=== PATIENT | male | born 1985 | race Caucasian/White ===

== ENCOUNTER → 2016-10-11 | Outpatient (CLI) | payer BC ==
[2016-10-11 14:24] LABS: BASO % 0.8 % (0.0-1.0); EOS # 0.3 K/mm3 (0.0-0.50); EOS % 5.3 % (0.0-3.0); LYMPH # 1.6 K/mm3 (1.5-4.5); LYMPH % 29.2 % (24.0-44.0); MEAN CORPUSCULAR HEMOGLOBIN 31.1 pg (27.0-33.0); MONO # 0.4 K/mm3 (0.0-0.8); MONO % 7.7 % (0.0-5.0); NEUTROPHILS # 2.8 K/mm3 (1.8-7.7); NEUTROPHILS % 53.3 % (36.0-66.0); RED CELL DISTRIBUTION WIDTH 13.1 % (11.5-14.5); WHITE BLOOD COUNT 5.3 K/mm3 (4.0-10.0)
[2016-10-11 14:48] LABS: ALBUMIN 4.3 GM/DL (3.2-5.2); ALBUMIN/GLOBULIN RATIO 1.59 (1.00-1.93); ALKALINE PHOSPHATASE 61 U/L (45-117); ALT/SGPT 54 U/L (12-78); AST/SGOT 25 U/L (15-37); BILIRUBIN,DIRECT 0.1 MG/DL (0.0-0.2); BILIRUBIN,TOTAL 0.5 MG/DL (0.2-1.0)
== END ==
LOC: M LAB 13:46
PROVIDERS: ATTEND Internal Medicine Gastroenterology
DX: K51.90 Ulcerative colitis, unspecified, without complications (principal); R12 Heartburn

== ENCOUNTER → 2017-05-13 | Outpatient (CLI) | payer BC ==
[2017-05-13 13:51] LABS: BASO # 0.1 10^3/uL (0.0-0.2); BASO % 0.6 % (0.0-1.0); EOS # 0.3 10^3/uL (0.0-0.50); EOS % 3.8 % (0.0-3.0); IMMATURE GRANULOCYTE % 0.2 % (0-0); LYMPH # 2.2 10^3/uL (1.5-4.5); LYMPH % 26.3 % (24.0-44.0); MEAN CORPUSCULAR HEMOGLOBIN 30.9 pg (27.0-33.0); MEAN CORPUSCULAR HGB CONC 35.7 g/dl (32.0-36.5); MEAN CORPUSCULAR VOLUME 86.6 fl (80.0-96.0); MONO # 0.9 10^3/uL (0.0-0.8); MONO % 11.2 % (0.0-5.0); NEUTROPHILS # 4.8 10^3/uL (1.8-7.7); NEUTROPHILS % 57.9 % (36.0-66.0); PLATELET COUNT, AUTOMATED 329 10^3/uL (150-450); RED CELL DISTRIBUTION WIDTH 12.4 % (11.5-14.5); WHITE BLOOD COUNT 8.2 10^3/uL (4.0-10.0)
[2017-05-13 14:41] LABS: ALBUMIN 4.3 GM/DL (3.2-5.2); ALBUMIN/GLOBULIN RATIO 1.43 (1.00-1.93); ALKALINE PHOSPHATASE 56 U/L (45-117); ALT/SGPT 61 U/L (12-78); AST/SGOT 23 U/L (7-37); BILIRUBIN,DIRECT 0.1 MG/DL (0.0-0.2); BILIRUBIN,TOTAL 0.3 MG/DL (0.2-1.0); TOTAL PROTEIN 7.3 GM/DL (6.4-8.2)
== END ==
LOC: M LAB 12:59
PROVIDERS: ATTEND Internal Medicine Gastroenterology
DX: K51.90 Ulcerative colitis, unspecified, without complications (principal)

== ENCOUNTER 2018-01-17 08:51 | Day surgery (SDC) | payer BC ==
[~2018-01-17 08:51] MED LIST: LIDOCAINE 2% INJ 100 MG/5 ML SDV (FOR ANES.) As Ordered; PROPOFOL 200 MG/20 ML VIAL As Ordered
[2018-01-17] MEDS: NS 1,000 ML IV (09:00)
[2018-01-17] MEDS ORDERED: LIDOCAINE 2% INJ 100 MG/5 ML SDV (FOR ANES.) As Ordered (09:56)
[2018-01-17] MEDS ORDERED: PROPOFOL 200 MG/20 ML VIAL As Ordered (09:56)
== END 2018-01-17 10:30 | disposition home or self-care (01) ==
LOC: M OPP 08:51
DX: K22.8 Other specified diseases of esophagus (principal); K44.9 Diaphragmatic hernia without obstruction or gangrene; R12 Heartburn; I10 Essential (primary) hypertension; Z79.899 Other long term (current) drug therapy; Z87.891 Personal history of nicotine dependence
CPT/HCPCS: 43239

== ENCOUNTER 2019-02-02 23:34 | Emergency (ER) | payer BC ==
[~2019-02-02] VITALS: Ht 170.2 cm; Wt 150.0 kg
[~2019-02-02 23:34] MED LIST changes: +AZAT50TA2 PO; +HUMI40KI2 SC; +IMUR50TA10 PO; -LIDOCAINE 2% INJ 100 MG/5 ML SDV (FOR ANES.) As Ordered; +LISI20TA18 PO; +MULTCAP PO; +OMEP10CASR PO; +PRED20TA PO; -PROPOFOL 200 MG/20 ML VIAL As Ordered
[2019-02-03 01:10] LABS: HEMATOCRIT 44.3 % (42.0-52.0); HEMOGLOBIN 15.4 g/dl (13.5-17.5); MEAN CORPUSCULAR HEMOGLOBIN 31.2 pg (27.0-33.0); MEAN CORPUSCULAR HGB CONC 34.8 g/dl (32.0-36.5); MEAN CORPUSCULAR VOLUME 89.7 fl (80.0-96.0); PLATELET COUNT, AUTOMATED 266 10^3/uL (150-450); RED BLOOD COUNT 4.94 10^6/uL (4.30-6.10); WHITE BLOOD COUNT 12.8 10^3/uL (4.0-10.0)
[2019-02-03 01:15] LABS: APPEARANCE, URINE CLEAR (CLEAR); BACTERIA, URINE AUTO NEGATIVE (NEGATIVE); BILIRUBIN, URINE AUTO NEGATIVE (NEGATIVE); BLOOD, URINE BLOOD 1+ (NEGATIVE); COLOR, URINE YELLOW (YELLOW); GLUCOSE, URINE (UA) AUTO NEGATIVE (NEGATIVE); KETONE, URINE AUTO TRACE mg/dL (NEGATIVE); LEUKOCYTE ESTERASE, URINE AUTO NEGATIVE (NEGATIVE); MUCUS, URINE SMALL (NEGATIVE); NITRITE, URINE AUTO NEGATIVE (NEGATIVE); PROTEIN, URINE AUTO NEGATIVE (NEGATIVE); RBC, URINE AUTO 16 /HPF (0-3); SPECIFIC GRAVITY URINE AUTO 1.025 (1.002-1.035); SQUAMOUS EPITHELIAL CELL UR AU 0 /HPF (0-6); WBC, URINE AUTO 0 /HPF (0-3)
[2019-02-03 02:41] LABS: ALBUMIN 4.3 GM/DL (3.2-5.2); ALT/SGPT 45 U/L (12-78); BILIRUBIN,TOTAL 0.6 MG/DL (0.2-1.0); BLOOD UREA NITROGEN 15 MG/DL (7-18); CALCIUM LEVEL 9.2 MG/DL (8.5-10.1); CARBON DIOXIDE LEVEL 32 MEQ/L (21-32); CHLORIDE LEVEL 102 MEQ/L (98-107); CREATININE FOR GFR 0.86 MG/DL (0.70-1.30); GLOMERULAR FILTRATION RATE > 60.0 (>60); GLUCOSE, FASTING 91 MG/DL (70-100); POTASSIUM SERUM 3.9 MEQ/L (3.5-5.1); SODIUM LEVEL 139 MEQ/L (136-145); TOTAL PROTEIN 7.6 GM/DL (6.4-8.2)
[2019-02-03] MEDS ORDERED: NS 500 ML IV ONE (02:45)
[2019-02-03 03:22] LABS: BASO % 0.3 % (0.0-1.0); EOS # 0.2 10^3/uL (0.0-0.50); EOS % 1.4 % (0.0-3.0); LYMPH # 2.2 10^3/uL (1.5-4.5); MONO # 1.3 10^3/uL (0.0-0.8); MONO % 9.9 % (0.0-5.0); NEUTROPHILS % 71.1 % (36.0-66.0)
[2019-02-03 03:32] LABS: INR 1.04; PROTHROMBIN TIME 13.3 SECONDS (11.8-14.0)
[2019-02-03 03:39] LABS: ALBUMIN 4.4 GM/DL (3.2-5.2); BILIRUBIN,DIRECT 0.2 MG/DL (0.0-0.2); BILIRUBIN,TOTAL 0.8 MG/DL (0.2-1.0); TOTAL PROTEIN 7.8 GM/DL (6.4-8.2)
[2019-02-03] MEDS ORDERED: ISOVUE-370 76% 100ML VIAL (Q9967) As Ordered ONE (03:45)
--- NOTE | 2019-02-03 06:34 | REPVR ---
EXAM: CT Abdomen and Pelvis With Contrast EXAM DATE/TIME: 02/03/2019 3:51 AM CLINICAL HISTORY: 33 years old, male; Abdominal pain; Localized; Right lower quadrant (rlq); Additional info: Rlq pain TECHNIQUE: Imaging protocol: Axial computed tomography images of the abdomen and pelvis with intravenous contrast. Coronal and sagittal reformatted images were created and reviewed. Radiation optimization: All CT scans at this facility use at least one of these dose optimization techniques: automated exposure control; mA and/or kV adjustment per patient size (includes targeted exams where dose is matched to clinical indication); or iterative reconstruction. Contrast material: ISOVUE 370;Contrast volume: 100 ml;Contrast route: IV; COMPARISON: No relevant prior studies available. FINDINGS: Lungs: The visualized portions of the lung bases are normal. Liver: The liver is markedly decreased in attenuation when higher density around gallbladder fossa, consistent with marked fatty infiltration with areas of sparing. Gallbladder and bile ducts: The gallbladder is normal with no stones or biliary ductal dilation. Pancreas: The pancreas is normal with no ductal dilation. Spleen: The spleen is normal. Adrenals: The adrenal glands are normal. Kidneys and ureters: The kidneys are unremarkable. There are no ureteral stones or hydronephrosis. Stomach and bowel: The small bowel appears unremarkable. There is short segment thickening of the right colon above the ileocolic junction with prominent adjacent inflammatory stranding and a trace of fluid. There is a thickwalled, focal outpouching from the colon at the site, likely an inflamed diverticulum. The cecum does not appear significantly thickened. The remainder of the colon is not dilated or thickened. A few diverticula are seen in the left colon. Appendix: The appendix is enlarged, measuring 14 mm in diameter. There is mild stranding adjacent to the appendix, but it does not appear to be the epicenter of the inflammatory process. Intraperitoneal space: There is no free intraperitoneal air. See Stomach and bowel findings. Retroperitoneal space: There is stranding extending down the right retroperitoneum. Vasculature: No aortic aneurysm. Lymph nodes: There are a few prominent lymph nodes in the mesentery in the right lower quadrant. Bladder: The bladder is unremarkable. No stones identified. Reproductive: The prostate gland and seminal vesicles are normal. Bones/joints: No suspicious osseous lesions. No acute fractures or dislocations. Soft tissues: There is a small periumbilical hernia containing fat. IMPRESSION: 1. Short segment thickening and prominent adjacent stranding centered at the mid right colon, which appears to be due to right-sided colonic diverticulitis. 2. The appendix is thickened, measuring up to 14 mm in diameter and there is a small amount of adjacent stranding, but it does not appear to be in the epicenter of the inflammatory process and may be secondarily inflamed. 3. Marked fatty infiltration of the liver. Electronically signed by: Caridad Modi On 02/03/2019 06:33:36 AM
[2019-02-03] MEDS ORDERED: metroNIDAZOLE 750 MG in APPROPRIATE DILUENT 1 EA IV ONE (06:45)
[2019-02-03] MEDS ORDERED: CIPROFLOXACIN 400 MG in APPROPRIATE DILUENT 1 EA IV ONE (06:45)
[2019-02-03] MEDS ORDERED: CIPR-249 PO (06:48)
[2019-02-03] MEDS ORDERED: FLAG500T PO (06:48)
[2019-02-03 09:02] VITALS: BP 137/91
--- NOTE | 2019-02-08 06:41 | ED PDOC ---
Post-Departure Follow-Up dr baldwin faxed formal report of ct abd/p for fu Mu Grayson MD Feb 08, 2019 06:41
== END 2019-02-03 09:20 | disposition home or self-care (01) ==
LOC: M ED 23:34
DX: K57.32 Diverticulitis of large intestine without perforation or abscess without bleeding (principal); K76.0 Fatty (change of) liver, not elsewhere classified; I10 Essential (primary) hypertension; E66.9 Obesity, unspecified; Z79.899 Other long term (current) drug therapy
CPT/HCPCS: 74177; 80053; 80076; 81001; 83690; 85027; 85610; 85730; 96365; 96366; 96368; 99284; J0744; Q9967

== ENCOUNTER 2019-03-18 10:45 | Day surgery (SDC) | payer BC ==
[2019-03-17] MEDS: NS 1,000 ML IV ONE (15:15)
[~2019-03-18] VITALS: Ht 170.2 cm; Wt 145.1 kg
[~2019-03-18 10:45] MED LIST changes: +CIPR-249 PO; +FLAG500T PO; -LISI20TA18 PO; +LISI20TA19 PO
[2019-03-18] MEDS ORDERED: PROPOFOL 200 MG/20 ML VIAL As Ordered ONE ×2 (12:07→12:15)
--- NOTE | 2019-03-18 12:20 | ROOR ---
Patient Name: John Chase Procedure Date: 03/18/2019 11:50 AM Date of : 1985 Age: 33 Room: [facility] Gender: Male Note Status: Finalized Procedure: Total Colonoscopy to cecum + Bx. Indications: Abdominal pain in the right lower quadrant, Follow-up of diverticulitis Providers: Irving Main MD Referring MD: THA TOWNSEND JR, MD Requesting Provider: Medicines: Monitored Anesthesia Care Complications: No immediate complications. Procedure: Pre-Anesthesia Assessment: - The heart rate, respiratory rate, oxygen saturations, blood pressure, adequacy of pulmonary ventilation, and response to care were monitored throughout the procedure. The Colonoscope was introduced through the anus and advanced to the cecum, identified by appendiceal orifice and ileocecal valve. The colonoscopy was performed without difficulty. The patient tolerated the procedure well. The quality of the bowel preparation was excellent. Findings: The perianal and digital rectal examinations were normal. Non-bleeding internal hemorrhoids were found during retroflexion. The hemorrhoids were small and Grade I (internal hemorrhoids that do not prolapse). Multiple small and large-mouthed diverticula were found in the recto-sigmoid colon, sigmoid colon and descending colon. Background biopsies were taken for histology with a cold forceps from the ascending colon, transverse colon, descending colon and rectosigmoid colon. These biopsy specimens were sent to Pathology. The exam was otherwise without abnormality on direct and retroflexion views. Impression: - Non-bleeding internal hemorrhoids. - Diverticulosis in the recto-sigmoid colon, in the sigmoid colon and in the descending colon. - The examination was otherwise normal on direct and retroflexion views. - Background biopsies were taken from the ascending colon, transverse colon, descending colon and rectosigmoid colon. - The exam was otherwise normal to the cecum. Recommendation: - Patient has a contact number available for emergencies. The signs and symptoms of potential delayed complications were discussed with the patient. Return to normal activities tomorrow. Written discharge instructions were provided to the patient. - High fiber diet. - Discharge patient to home. - Continue present medications. - Await pathology results. - Telephone GI clinic for pathology results in 1 week. - Repeat colonoscopy in 5 years for surveillance. - Return to referring physician. - The findings and recommendations were discussed with the patient's family. Irving Main MD Irving Main MD 03/18/2019 12:20:21 PM Electronically signed by Irving Main MD Number of Addenda: 0 Note Initiated On: 03/18/2019 11:50 AM Estimated Blood Loss: Estimated blood loss: none.
[2019-03-18 12:40] VITALS: BP 134/79
== END 2019-03-18 12:52 | disposition home or self-care (01) ==
LOC: M OPP 10:45
PROVIDERS: ATTEND Internal Medicine Gastroenterology
DX: K51.80 Other ulcerative colitis without complications (principal); R10.31 Right lower quadrant pain; K57.32 Diverticulitis of large intestine without perforation or abscess without bleeding; K64.1 Second degree hemorrhoids; I10 Essential (primary) hypertension; K21.9 Gastro-esophageal reflux disease without esophagitis; R06.83 Snoring; Z79.899 Other long term (current) drug therapy; Z87.891 Personal history of nicotine dependence

== ENCOUNTER 2019-04-02 07:21 | Emergency (ER) | payer OTHER, BC ==
[~2019-04-02] VITALS: Ht 170.2 cm; Wt 153.3 kg
[2019-04-02 07:21] VITALS: BP 148/86
[2019-04-02] MEDS ORDERED: TETRACAINE 0.5% OPHTH SOLN 4ML OS ONE (08:00)
[2019-04-02] MEDS ORDERED: FLUORESCEIN OPHTH 1 MG STRIP As Ordered ONE (08:02)
[2019-04-02] MEDS ORDERED: FLUORESCEIN OPHTH 1 MG STRIP OS ONE (08:15)
[2019-04-02] MEDS ORDERED: ERYT1OIN26 OS (08:25)
[2019-04-02] MEDS ORDERED: ADACEL/BOOSTRIX VACCINE (DIPHTH/PERTUSS/ACELL/TETANUS)0.5ML SYR (90715) IM ONE (08:30)
[2019-04-02] MEDS ORDERED: ERYTHROMYCIN OPHTH OINT OS ONE (08:30)
== END 2019-04-02 08:37 | disposition home or self-care (01) ==
LOC: M ED 07:21
DX: T15.02XA Foreign body in cornea, left eye, initial encounter (principal); Z79.899 Other long term (current) drug therapy

== ENCOUNTER → 2020-01-02 | Outpatient (CLI) | payer BC ==
[~2020-01-02] MED LIST changes: +ERYT5OIN25 OS; -LISI20TA19 PO; +LISI20TA35 PO
--- NOTE | 2020-01-13 11:49 | SLEEPCENT ---
DATE OF PROCEDURE: 01/02/2020 ORDERED BY: GISEL Stevens Nocturnal polysomnography was performed for evaluation of sleep physiology in this patient with a history of excessive somnolence and nonrestorative sleep. 6 hours and 29 minutes of data were reviewed. There were 169 minutes of sleep identified. Sleep latency was prolonged at 45 minutes. Rapid eye movement (REM) latency was short at 29 minutes. Sleep architecture showed fragmentation. There were 2 REM cycles noted. Overall sleep efficiency 44.5%. The patient's electrocardiogram showed a sinus rhythm with an average heart rate of 75 beats per minute. Electroencephalogram (EEG) showed some EKG bleed through, but otherwise normal waveforms for awake and sleep. There were 140 respiratory events identified of 10 seconds in duration or greater for an apnea-hypopnea index of 49.7. The events were primarily obstructive not exclusive to sleep stage nor body posture. Arousals from respiratory events occurred 8.2 times per hour and oxygen desaturations were seen in the low 80s. There was minimal activity in the limb leads and limb movement arousal index was 2.1. IMPRESSION: Severe obstructive sleep apnea syndrome (G47.33). Apnea-hypopnea index 47.9. RECOMMENDATIONS: The patient should be encouraged to return to the sleep disorder center for pressure therapy. In the interim, alcohol and sedative avoidance should be practiced and caution exercised during the operation of motor vehicles.
== END ==
LOC: M SLEEP 20:00
PROVIDERS: ATTEND Physician Assistant
DX: R06.83 Snoring (principal)

== ENCOUNTER → 2020-02-20 | Outpatient (CLI) | payer BC ==
--- NOTE | 2020-02-27 08:33 | SLEEPCENT ---
DATE: 02/20/2020 ORDERED BY: Ministerio Cook Nocturnal polysomnography was performed for the titration of pressure therapy in this patient with severe obstructive sleep apnea syndrome, apnea-hypopnea index 47.9. For testing, a ResMed AirFit F20 full-face mask of medium size was used. There was 4 cm of water pressure applied to the circuit, and the lights were extinguished. There was 7 hours and 4 minutes of data reviewed. There was 273.5 minutes of sleep identified. Sleep latency was prolonged at 30.5 minutes. REM latency was snort at 30.5 minutes. Sleep architecture was good with five REM cycles. Overall sleep efficiency was 67.1% The electrocardiogram showed a sinus rhythm with an average heart rate of 72 beats per minute. EEG showed reasonably normal waveforms for wake and sleep stages. Persistence of respiratory events prompted an increase in CPAP pressure. On retrospective review of the study, best sleep was seen on a CPAP pressure of +14. Despite optimal pressure, saturations dipped into the upper 80s. IMPRESSION: Severe obstructive sleep apnea syndrome (G47.33). RECOMMENDATION: Nightly use of pressure therapy, 14 cm of water. MTDD
== END ==
LOC: M SLEEP 20:00
PROVIDERS: ATTEND Physician Assistant
DX: G47.33 Obstructive sleep apnea (adult) (pediatric) (principal)

== ENCOUNTER 2020-08-14 12:09 | Emergency (ER) | payer BC ==
[~2020-08-14] VITALS: Ht 170.2 cm; Wt 159.7 kg
--- OUTSIDE RECORDS SUMMARY | 2020-08-14 12:16 | CCD | Continuity of Care Document ---
Author Author John BANKS Organization Unknown Address [phone] [address] Phone [phone] Problems Active Problems Provider Date Pure hypercholesterolemia Darshan Gallegos MD Onset: 05/16 Ulcerative colitis Darshan Gallegos MD Onset: 05/16/2011 Essential hypertension Darshan Gallegos MD Onset: 05/16/20 11 Morbid obesity Darshan Gallegos MD Onset: 11/26/2017 Body mass index 40+ - severely obese Darshan Gallegos MD O nset: 11/26/2017 Abnormal glucose level Darshan Gallegos MD Onset: 05/26/20 19 Social History Type Date Description Comments Sex Unknown ETOH Use Denies alcohol use Tobacco Use Start: Unknown Patient has never smoked He used to chew tobacco but quit 2013 and totally abstains Allergies, Adverse Reactions, Alerts Description No Known Drug Allergies Medications Active Medications SIG Qnty Indications Ordering Provide r Date Amlodipine Besylate 10mg Tablets 1 by mouth every day 90tabs ARNAV Ramsey JR 021 Lisinopril 10mg Tablets Take 1 Tablet By Mouth Every Day 90tabs ARNAV Ramsey JR 021 Lisinopril-Hydrochlorothiazide 20-12.5mg Tablets take one tablet by mouth once a day 90tabs ARNAV Solis JR 07/18/[address] 1 by mouth every day 90caps Darshan Gallegos MD 03/29/2020 Humira 40mg/0.8ML PSKT q2wks Darshan Gallegos MD 10/31/2016 Imuran 50mg Tablets 1 qd Darshan Gallegos MD 05/16/2011 History Medications Amlodipine Besylate 5mg Tablets 1 by mouth every day 90tabs Darshan Gallegos MD 06/13/2020 - 08/01/2020 Medications Administered in Office Medication SIG Qnty Indications Ordering Provider Date Immunization Adminstration,1 Vaccine/Tox oid Injection Darshan Gallegos MD 2019 Immunization Adminstration,1 Vaccine/Tox oid Injection Darshan Gallegos MD 2018 Immunizations CPT Code Status Date Vaccine Reaction Lot # [id number] Given 03/29/2020 Influenza Vaccin e Quadrivalent Preser/Antibiotic Free Im Use [id number] Given 05/26/2019 Influenza Vaccin e Quadrivalent Preser/Antibiotic Free Im Use [id number] [id number] Given 05/28/2017 Influenza Vaccin e Quadrivalent Preser/Antibiotic Free Im Use [id number] [id number] Given 07/09/2016 PPD 07-11-16 0mm negative B Pancho LOZANO [id number] Q2037 Given 05/01/2016 Fluvirin Virus Vaccine [id number] Q2037 Given 04/03/2012 Fluvirin Virus Vaccine Q2037 Given 05/16/2011 Fluvirin Virus Vaccine 18410 Given 04/28/2010 Influenza Virus Vaccine 07482 Given 03/25/2009 Influenza Virus Vaccine Vital Signs Date Vital Result Comment 08/01/2020 10:09am BP Systolic 150 mmHg BP Diastolic 90 mmHg Heart Rate 83 /min Height 67.50 inches 5'7.50" Weight 357.00 lb BMI (Body Mass Index) 55.1 kg/m2 07/18/2020 8:24am BP Systolic 160 mmHg BP Diastolic 100 mmHg Heart Rate 81 /min Height 67.50 inches 5'7.50" Weight 362.00 lb BMI (Body Mass Index) 55.9 kg/m2 Results Test Acquired Date Facility Test Result H/L Range Note Basic Metabolic Panel 08/01/2020 [facility] Laundry Operator: [place] [address] [phone] Glucose 126 mg/dL High 74 - 99 1 BUN 15 mg/dL 7 - 18 Creatinine 0.9 mg/dL 0.6 - 1.3 Sodium 139 mEq/L 136 - 145 Potassium 4.1 mEq/L 3.5 - 5.1 Chloride 101 mEq/L 98 - 107 Carbon Dioxide 29 mEq/L 21 - 32 Calcium 9.3 mg/dL 8.5 - 10.1 GFR >= 60 mL/min >60 GFR >= 60 mL/min >60 2 Complete Blood Count 03/29/2020 [facility] Laundry Operator: [place] [address] [phone] WBC 7.4 x10*3/UL 4.1 - 10.9 RBC 5.05 x10*6/UL 4.20 - 6.30 Hemoglobin 15.5 g/dL 12.0 - 18.0 Hematocrit 43.4 % 37.0 - 51.0 MCV 86.1 fL 80.0 - 97.0 MCH 30.8 pg 26.0 - 32.0 MCHC 35.7 g/dL 31.0 - 38.0 RDW 12.4 % 11.6 - 13.7 PLT 280 x10*3/UL 140 - 440 MPV 7.3 FL Low 7.8 - 11.0 Lymph % 31.1 % 10.0 - 58.5 Mid % 8.8 % 1.7 - 9.3 Neut % 60.1 % 37.0 - 92.0 Lymph # 2.3 x10*3/UL 0.6 - 4.1 Mid # 0.7 x10*3/UL High 0.1 - 0.6 Neut # 4.4 x10*3/UL 2.0 - 7.8 A1c 03/29/2020 [facility] Laundry Operator: [place] [address] [phone] Hba1c 6.3 % High <5.7 3 Est Avg Glucose 134 mg/dL High 60 - 110 Comprehensive Chem Profile 03/29/2020 [facility] Laundry Operator: [place] [address] [phone] Glucose 109 mg/dL High 74 - 99 4 BUN 13 mg/dL 7 - 18 Creatinine 0.9 mg/dL 0.6 - 1.3 Sodium 139 mEq/L 136 - 145 Potassium 3.9 mEq/L 3.5 - 5.1 Chloride 101 mEq/L 98 - 107 Carbon Dioxide 27 mEq/L 21 - 32 Calcium 9.5 mg/dL 8.5 - 10.1 Alk. Phosphatase 61 mg/dL 46 - 116 Total Bilirubin 0.6 mg/dL 0.2 - 1.0 Ast (Sgot) 32 U/L 15 - 37 Alt (SGPT) 77 U/L 12 - 78 Albumin 4.5 g/dL 3.4 - 5.0 Total Protein 7.8 g/dL 6.4 - 8.2 A/G Ratio 1.36 CALC 1.00 - 1.90 GFR >= 60 mL/min >60 GFR >= 60 mL/min >60 5 Lipid Profile 03/29/2020 [facility] Laundry Operator: [place] [address] [phone] Cholesterol 171 mg/dL 131 - 200 Triglycerides 296 mg/dL High 30 - 150 HDL Cholesterol 34 mg/dL Low 35 - 60 LDL (Calculated) 78 CALC 50 - 159 1 100-125 mg/dL PRE-DIABET ES/FASTING >126 mg/dL DIABETES/FASTING 2 CHRONIC KIDNEY DISEASE STAGI NG PER NKF STAGE I & II GFR >= 60 NORMAL TO MILDLY DECREASED STAGE III GFR 30-59 MODERATELY DECREASED STAGE IV GFR 15-29 SEVERELY DECREASED STAGE V GFR <15 VERY LITTLE GFR LEFT ESRD GFR <15 ON HEAD INSULATION BOARD SAW OPERATOR 3 Lab Result Notes: Pre-Diabetes 5.7 - 6.4 % Diabetes = or > 6.5% 4 100-125 mg/dL PRE-DIABET ES/FASTING >126 mg/dL DIABETES/FASTING 5 CHRONIC KIDNEY DISEASE STAGI NG PER NKF STAGE I & II GFR >= 60 NORMAL TO MILDLY DECREASED STAGE III GFR 30-59 MODERATELY DECREASED STAGE IV GFR 15-29 SEVERELY DECREASED STAGE V GFR <15 VERY LITTLE GFR LEFT ESRD GFR <15 ON HEAD INSULATION BOARD SAW OPERATOR Procedures Date Code Description Status 03/18/2019 [id number] Colonoscopy Completed 01/17/2018 [id number] Colonoscopy Completed 12/28/2013 [id number] Colonoscopy Completed 06/03/2009 [id number] Colonoscopy Completed Medical Devices Description No Information Available Encounters Type Date Location Provider Dx Diagnosis Office Visit 07/18/2020 8:20a [facility] I10 Essential (primary) hyperten jennifer E66.01 Morbid (severe) obesity due to excess calories Z68.43 Body mass index [BMI] 50.0-5 9.9, adult Office Visit 03/29/2020 9:20a [facility] Darshan Gallegos MD G47.33 Obstructive sleep apnea (adult) (pediatr ic) I10 Essential (primary) hyperten jennifer K51.90 Ulcerative colitis, unspecif ied, without complications E78.00 Pure hypercholesterolemia, u nspecified R73.09 Other abnormal glucose E66.01 Morbid (severe) obesity due to excess calories Z68.43 Body mass index [BMI] 50.0-5 9.9, adult Z23 Encounter for immunization Assessments Date Code Description Provider 08/01/2020 I10 Essential (primary) hypertension ARNAV Ramsey JR 08/01/2020 E66.01 Morbid (severe) obesity due to e xcess calories ARNAV Ramsey JR 08/01/2020 Z68.43 Body mass index [BMI] 50.0-59.9, adult ARNAV Ramsey JR 07/18/2020 I10 Essential (primary) hypertension ARNAV Ramsey JR 07/18/2020 E66.01 Morbid (severe) obesity due to e xcess calories ARNAV Ramsey JR 07/18/2020 Z68.43 Body mass index [BMI] 50.0-59.9, adult ARNAV Ramsey JR 03/29/2020 G47.33 Obstructive sleep apnea (adult) (pediatric) Darshan Gallegos MD 03/29/2020 I10 Essential (primary) hypertension Darshan Gallegos MD 03/29/2020 K51.90 Ulcerative colitis, unspecified, without complications Darshan Gallegos MD 03/29/2020 E78.00 Pure hypercholesterolemia, unspe cified Darshan Gallegos MD 03/29/2020 R73.09 Other abnormal glucose Darshan Gallegos MD 03/29/2020 E66.01 Morbid (severe) obesity due to e xcess calories Darshan Gallegos MD 03/29/2020 Z68.43 Body mass index [BMI] 50.0-59.9, adult Darshan Gallegos MD 03/29/2020 Z23 Encounter for immunization Colli jermaine Gallegos MD Plan of Treatment Future Appointment(s):* 08/22/2020 10:40 am - ARNAV Ramsey JR at [facility] * 09/28/2020 10:20 am - [facility] 08/01/2020 - ARNAV Ramsey JR* I10 Essential (primary) hypertension* Comments:* He is not currently at [facility] goals, diet and exercise were discussed including Mediterranean diet and 30 minutes of aerobic exercise daily, continue current medication regimen at this time.Continue the previously added 10mg lisinopril to his already 20-12.5 combo dose, will continue to monitor daily BPs and RTC 2-3 weeks. Continue exercise, will attempt to watch diet better. Had unfavorable weight gain. Increased amlodipine to 10mg * E66.01 Morbid (severe) obesity due to excess calories* Comments:* As above, diet and exercise * Z68.43 Body mass index [BMI] 50.0-59.9, adult* Comments:* As above * All * New Medication:* Amlodipine Besylate 10 mg - 1 by mouth every day Functional Status Description No Information Available Mental Status Description No Information Available Referrals Description No Information Available
--- OUTSIDE RECORDS SUMMARY | 2020-08-14 12:16 | CCD | Continuity of Care Document ---
Author Author John BANKS Organization Unknown Address [address] [address] Phone [phone] Problems Active Problems Provider Date Pure hypercholesterolemia [...] Code Status Date Vaccine Reaction Lot # [id number] Given 03/29/2020 Influenza Vaccin e Quadrivalent Preser/Antibiotic Free Im Use [id number] 24900 Given 05/26/2019 Influenza Vaccin e Quadrivalent Preser/Antibiotic Free Im Use [id number] 43555 Given 05/28/2017 Influenza Vaccin e Quadrivalent Preser/Antibiotic Free Im Use [id number] 93282 Given 07/09/2016 PPD 07-11-16 0mm negative B Pancho LOZANO [id number] Q2037 Given 05/01/2016 Fluvirin Virus Vaccine 16 [id number] Q2037 Given 04/03/2012 Fluvirin Virus Vaccine Q2037 Given 05/16/2011 Fluvirin Virus Vaccine 13538 Given 04/28/2010 Influenza Virus Vaccine 60238 Given 03/25/2009 Influenza Virus Vaccine Vital Signs [...] H/L Range Note Basic Metabolic Panel 08/01/2020 [facility] Forestry Professor: [place] [address] [phone] Glucose 126 mg/dL High 74 - 99 [...] mL/min >60 2 Complete Blood Count 03/29/2020 [facility] Forestry Professor: [place] [address] [phone] WBC 7.4 x10*3/UL 4.1 - 10.9 RBC [...] 4.4 x10*3/UL 2.0 - 7.8 A1c 03/29/2020 [facility] Forestry Professor: [place] [address] [phone] Hba1c 6.3 % High <5.7 3 Est Avg Glucose 134 mg/dL High 60 - 110 Comprehensive Chem Profile 03/29/2020 [facility] Forestry Professor: [place] [address] [phone] Glucose 109 mg/dL High 74 - 99 [...] 60 mL/min >60 5 Lipid Profile 03/29/2020 [facility] Forestry Professor: [place] [address] [phone] Cholesterol 171 mg/dL 131 - 200 Triglycerides [...] LITTLE GFR LEFT ESRD GFR <15 ON RESIDENT CARE DIRECTOR 3 Lab Result Notes: Pre-Diabetes 5.7 - [...] LITTLE GFR LEFT ESRD GFR <15 ON RESIDENT CARE DIRECTOR Procedures Date Code Description Status 03/18/2019 [id number] Colonoscopy Completed 01/17/2018 [id number] Colonoscopy Completed 12/28/2013 [id number] Colonoscopy Completed 06/03/2009 [id number] Colonoscopy Completed Medical Devices Description No Information Available Encounters Type Date Location Provider Dx Diagnosis Office Visit 08/01/2020 10:00a [facility], [facility] I10 Essential (primary) hyperten jennifer E66.01 Morbid (severe) obesity due to excess calories Z68.43 Body mass index [BMI] 50.0-5 9.9, adult Office Visit 07/18/2020 8:20a [facility] JR I10 Essential (primary) hyperten jennifer E66.01 Morbid (severe) obesity due to excess calories Z68.43 Body mass index [BMI] 50.0-5 9.9, adult Office Visit 03/29/2020 9:20a [facility] MD G47.33 Obstructive sleep apnea (adult) [...] Treatment Future Appointment(s):* 08/22/2020 10:40 am - Timi Banks JR PA at [facility] * 09/28/2020 10:20 am - Darshan Gallegos MD at [facility] 08/01/2020 - ARNAV Ramsey JR* I10 [...]
--- OUTSIDE RECORDS SUMMARY | 2020-08-14 12:17 | CCD | Continuity of Care Document ---
Author Author John TIDWELL PA Organization Unknown Address [address] [address] Phone [phone] Problems Active Problems Provider Date Pure hypercholesterolemia [...] SIG Qnty Indications Ordering Provide r Date Lisinopril 10mg Tablets Take 1 Tablet By Mouth Every Day 90tabs ARNAV Ramsey JR 021 Lisinopril-Hydrochlorothiazide 20-12.5mg Tablets take one tablet by mouth once a day 90tabs ARNAV Solis JR 07/18/2020 Amlodipine Besylate 5mg Tablets 1 by mouth every day 90tabs Darshan Gallegos MD 06/13/[address] 1 by mouth every day 90caps Darshan Gallegos MD 03/29/2020 Humira 40mg/0.8ML PSKT q2wks Darshan Gallegos MD 10/31/2016 Imuran 50mg Tablets 1 qd Darshan Gallegos MD 05/16/2011 Medications Administered in Office Medication SIG Qnty Indications Ordering Provider Date Immunization Adminstration,1 Vaccine/Tox oid Injection Darshan Gallegos MD 2019 Immunization Adminstration,1 Vaccine/Tox oid Injection Darshan Gallegos MD 2018 Immunizations CPT Code Status Date Vaccine Reaction Lot # [id number] Given 03/29/2020 Influenza Vaccin e Quadrivalent Preser/Antibiotic Free Im Use [id number] 90590 Given 05/26/2019 Influenza Vaccin e Quadrivalent Preser/Antibiotic Free Im Use [id number] 73366 Given 05/28/2017 Influenza Vaccin e Quadrivalent Preser/Antibiotic Free Im Use 464333 93144 Given 07/09/2016 PPD 07-11-16 0mm negative B Pancho LOZANO [id number] Q2037 Given 05/01/2016 Fluvirin Virus Vaccine 16 54794 Q2037 Given 04/03/2012 Fluvirin Virus Vaccine Q2037 Given 05/16/2011 Fluvirin Virus Vaccine 75954 Given 04/28/2010 Influenza Virus Vaccine 66829 Given 03/25/2009 Influenza Virus Vaccine Vital Signs Date Vital Result Comment 07/18/2020 8:24am BP Systolic 160 mmHg BP Diastolic 100 mmHg Heart Rate 81 /min Height 67.50 inches 5'7.50" Weight 362.00 lb BMI (Body Mass Index) 55.9 kg/m2 03/29/2020 9:14am BP Systolic 136 mmHg BP Diastolic 72 mmHg Heart Rate 74 /min Height 67.50 inches 5'7.50" Weight 357.00 lb BMI (Body Mass Index) 55.1 kg/m2 Results Test Acquired Date Facility Test Result H/L Range Note Complete Blood Count 03/29/2020 [facility] Shaker Washer: [place] [address] [phone] WBC 7.4 x10*3/UL 4.1 - 10.9 RBC [...] 4.4 x10*3/UL 2.0 - 7.8 A1c 03/29/2020 [facility] , Shaker Washer: [place] [address] [phone] Hba1c 6.3 % High <5.7 1 Est Avg Glucose 134 mg/dL High 60 - 110 Comprehensive Chem Profile 03/29/2020 [facility] Shaker Washer: [place] [address] [phone] Glucose 109 mg/dL High 74 - 99 2 BUN 13 mg/dL 7 - 18 Creatinine [...] mL/min >60 GFR >= 60 mL/min >60 3 Lipid Profile 03/29/2020 [facility] , Shaker Washer: [place] [address] [phone] Cholesterol 171 mg/dL 131 - 200 Triglycerides 296 mg/dL High 30 - 150 HDL Cholesterol 34 mg/dL Low 35 - 60 LDL (Calculated) 78 CALC 50 - 159 1 Lab Result Notes: Pre-Diabetes 5.7 - 6.4 % Diabetes = or > 6.5% 2 100-125 mg/dL PRE-DIABET ES/FASTING >126 mg/dL DIABETES/FASTING 3 CHRONIC KIDNEY DISEASE STAGI NG PER NKF STAGE I & II GFR >= 60 NORMAL TO MILDLY DECREASED STAGE III GFR 30-59 MODERATELY DECREASED STAGE IV GFR 15-29 SEVERELY DECREASED STAGE V GFR <15 VERY LITTLE GFR LEFT ESRD GFR <15 ON FRAME BENDER Procedures Date Code Description Status 03/18/2019 [id number] Colonoscopy Completed 01/17/2018 [id number] Colonoscopy Completed 12/28/2013 [id number] Colonoscopy Completed 06/03/2009 [id number] Colonoscopy Completed Medical Devices Description No Information Available Encounters Type Date Location Provider Dx Diagnosis Office Visit 03/29/2020 9:20a [facility] Darshan Gallegos MD G47.33 Obstructive sleep apnea (adult) (pediatr ic) I10 Essential (primary) hyperten jennifer K51.90 Ulcerative colitis, unspecif ied, without complications E78.00 Pure hypercholesterolemia, u nspecified R73.09 Other abnormal glucose E66.01 Morbid (severe) obesity due to excess calories Z68.43 Body mass index [BMI] 50.0-5 9.9, adult Z23 Encounter for immunization Assessments Date Code Description Provider 07/18/2020 I10 Essential (primary) hypertension ARNAV Ramsey [...] Gallegos MD Plan of Treatment Future Appointment(s):* 09/28/2020 10:20 am - [facility] 07/18/2020 - ARNAV Ramsey JR* I10 Essential (primary) hypertension * E66.01 Morbid (severe) obesity due to excess calories * Z68.43 Body mass index [BMI] 50.0-59.9, adult * All * New Medication:* Lisinopril 10 mg - Take 1 Tablet By Mouth Every Day * Lisinopril-Hydrochlorothiazide 20-12.5 mg - take one tablet by mouth once a day Functional Status Description No Information Available Mental Status Description No Information Available Referrals Description No Information Available
--- OUTSIDE RECORDS SUMMARY | 2020-08-14 12:17 | CCD | Continuity of Care Document ---
Author Author John ONTIVEROS PA Organization Unknown Address [address] [place] [address] Phone [phone] Care Team Providers Care Culinary Artist Name Role Phone Timi Banks AUTM [phone] Darshan Gallegos MD @ [facility] Int AUTM [phone] AUTM Unavailable Problems Active Problems Provider Date Obstructive sleep apnea syndrome ARNAV Stevens Onset: 02/01/2020 Social History Type Date Description Comments Sex Unknown Tobacco Use Start: Unknown Patient has never smoked Smoking Status Reviewed: 06/10/20 Patient has never smoked Allergies, Adverse Reactions, Alerts Description No Known Drug Allergies Medications Active Medications SIG Qnty Indications Ordering Provide r Date CPAP Device 14cm marcial Sloan D.O. 02/26/2020 Lisinopril 20mg Tablets 1 tab by mouth every day Unknown Humira twice a month Unknown Imuran 50mg Tablets 1 tab by mouth every day Unknown Prilosec 40mg Capsules DR 1 tab by mouth every day 180caps Unknown Immunizations CPT Code Status Date Vaccine Lot # [id number] Given 04/27/2020 Afluria, Quadrivalent, 0.5ml , [facility]# [id number] Given 05/06/2019 Afluria, Quadrivalent, 0.5ml , [facility]# [id number] Vital Signs Date Vital Result Comment 06/10/2020 8:21am BP Systolic 138 mmHg BP Diastolic 98 mmHg Heart Rate 83 /min O2 % BldC Oximetry 98 % Height 67 inches 5'7" Weight 364.00 lb BMI (Body Mass Index) 57.0 kg/m2 [place] Body Weight 148 lb Weight 165.110 kg BSA (Body Surface Area) 2.61 m2 04/19/2020 8:37am BP Systolic 142 mmHg BP Diastolic 96 mmHg Heart Rate 76 /min O2 % BldC Oximetry 98 % Height 67 inches 5'7" Weight 358.00 lb BMI (Body Mass Index) 56.1 kg/m2 [place] Body Weight 148 lb Weight 162.389 kg BSA (Body Surface Area) 2.59 m2 Results Description No Information Available Procedures Description No Information Available Medical Devices Description No Information Available Encounters Type Date Location Provider Dx Diagnosis Office Visit 04/19/2020 9:00a [facility] ARNAV Stevens G47.33 Obstructive sleep apnea (adult) (pediatr ic) Office Visit 02/01/2020 9:30a [facility] ARNAV Stevens G47.33 Obstructive sleep apnea (adult) (pediatr ic) Office Visit 12/21/2019 10:30a [facility] ARNAV Stevens R06.83 Snoring R40.0 Somnolence Assessments Date Code Description Provider 06/10/2020 G47.33 Obstructive sleep apnea (adult) (pediatric) ARNAV Stevens 04/19/2020 G47.33 Obstructive sleep apnea (adult) (pediatric) ARNAV Stevens 02/01/2020 G47.33 Obstructive sleep apnea (adult) (pediatric) ARNAV Stevens 12/21/2019 R06.83 Snoring ARNAV Stevens 12/21/2019 R40.0 Somnolence ARNAV Stevens Plan of Treatment Future Appointment(s):* 06/05/2021 11:30 am - ARNAV Stevens at [facility] 06/10/2020 - ARNAV Stevens* G47.33 Obstructive sleep apnea (adult) (pediatric) * * Follow up:* Follow up in 1 year with compliance download Functional Status Functional Condition Comment Date Status Independent with all ADL's Activ e Mental Status Mental Condition Comment Date Status Cognitive ability not impaired A ctive Referrals Refer to Reason for Referral Status Appt Date [facility] smc auth sleep [id number] Created Sleep Lab [address] [address] [phone]
--- OUTSIDE RECORDS SUMMARY | 2020-08-14 12:17 | CCD | Continuity of Care Document ---
Author Author John TIDWELL Organization Unknown Address [address] [address] Phone [phone] Problems Active Problems Provider Date Pure hypercholesterolemia [...] Code Status Date Vaccine Reaction Lot # 24519 Given 03/29/2020 Influenza Vaccin e Quadrivalent Preser/Antibiotic Free Im Use [id number] 69410 Given 05/26/2019 Influenza Vaccin e Quadrivalent Preser/Antibiotic Free Im Use 085634 55351 Given 05/28/2017 Influenza Vaccin e Quadrivalent Preser/Antibiotic Free Im Use 844560 77594 Given 07/09/2016 PPD 17 0mm negative B Pancho LOZANO [id number] Q2037 Given 05/01/2016 Fluvirin Virus Vaccine 16 36820 Q2037 Given 04/03/2012 Fluvirin Virus Vaccine Q2037 Given 05/16/2011 Fluvirin Virus Vaccine 57813 Given 04/28/2010 Influenza Virus Vaccine 00984 Given 03/25/2009 Influenza Virus Vaccine Vital Signs [...] H/L Range Note Complete Blood Count 03/29/2020 [facility] Medicine Technologist: [place] [address] [phone] WBC 7.4 x10*3/UL 4.1 - 10.9 RBC [...] 4.4 x10*3/UL 2.0 - 7.8 A1c 03/29/2020 [facility] , Medicine Technologist: [place] [address] [phone] Hba1c 6.3 % High <5.7 1 Est Avg Glucose 134 mg/dL High 60 - 110 Comprehensive Chem Profile 03/29/2020 [facility], Medicine Technologist: [place] Darshan [place] [address] [phone] Glucose 109 mg/dL High 74 - 99 [...] 60 mL/min >60 3 Lipid Profile 03/29/2020 [facility] , Medicine Technologist: [place] [address] [phone] Cholesterol 171 mg/dL 131 - 200 Triglycerides [...] LITTLE GFR LEFT ESRD GFR <15 ON MIXING PICKER TENDER Procedures Date Code Description Status 03/18/2019 [id number] Colonoscopy Completed 01/17/2018 [id number] Colonoscopy Completed 12/28/2013 [id number] Colonoscopy Completed 06/03/2009 [id number] Colonoscopy Completed Medical Devices Description No Information Available Encounters Type Date Location Provider Dx Diagnosis Office Visit 07/18/2020 8:20a [facility] [place] [facility] I10 Essential (primary) hyperten jennifer E66.01 Morbid (severe) obesity due to excess calories Z68.43 Body mass index [BMI] 50.0-5 9.9, adult Office Visit 03/29/2020 9:20a [facility] Gallegos MD G47.33 Obstructive sleep apnea (adult) [...] 10:20 am - Darshan Gallegos MD at [facility] 08/01/2020 - ARNAV Ramsey JR* [...] diet better. Had unfavorable weight gain. Increased amlodopine to 10mg * E66.01 Morbid (severe) obesity [...]
--- OUTSIDE RECORDS SUMMARY | 2020-08-14 12:17 | CCD ---
Author Author [facility] Organization [facility] Address Unknown Phone Unavailable Care Team Providers Care Cad Draftsman Name Role Phone Lane Main MD Unavailable Unavailable Lane Main MD Unavailable Unavailable Lane Main MD Unavailable Unavailable Lane Main MD Unavailable Unavailable Lane Main MD Unavailable Unavailable Lane Main MD Unavailable Unavailable Lane Main MD Unavailable Unavailable Lane Main MD Unavailable Unavailable Lane Main MD Unavailable Unavailable Lane Main MD Unavailable Unavailable Lane Main MD Unavailable Unavailable Lane Main MD Unavailable Unavailable Lane Main MD Unavailable Unavailable Lane Main MD Unavailable Unavailable Lane Main MD Unavailable Unavailable Lane Main MD Unavailable Unavailable Lane Main MD Unavailable Unavailable Lane Main MD Unavailable Unavailable Lane Main MD Unavailable Unavailable Lane Main MD Unavailable Unavailable Lane Main MD Unavailable Unavailable Lane Main MD Unavailable Unavailable Lane Main MD Unavailable Unavailable Lane Main MD Unavailable Unavailable Lane Main MD Unavailable Unavailable Lane Main MD Unavailable Unavailable Lane Main MD Unavailable Unavailable Lane Main MD Unavailable Unavailable Lane Main MD Unavailable Unavailable Lane Main MD Unavailable Unavailable Lane Main MD Unavailable Unavailable Lane Main MD Unavailable Unavailable Lane Main MD Unavailable Unavailable Lane Main MD Unavailable Unavailable Lane Main MD Unavailable Unavailable Lane Main MD Unavailable Unavailable Lane Main MD Unavailable Unavailable Lane Main MD Unavailable Unavailable Lane Main MD Unavailable Unavailable Lane Main MD Unavailable Unavailable Lane Main MD Unavailable Unavailable Lane Main MD Unavailable Unavailable Lane Main MD Unavailable Unavailable Lane Main MD Unavailable Unavailable Lane Main MD Unavailable Unavailable Lane Main MD Unavailable Unavailable Lane Main MD Unavailable Unavailable Lane Main MD Unavailable Unavailable Lane Main MD Unavailable Unavailable Lane Main MD Unavailable Unavailable CarsonRoyal gabriel MD Unavailable Unavailable CarsonRoyal gabriel MD Unavailable Unavailable ElRoyal gabriel MD Unavailable Unavailable CarsonRoyal gabriel MD Unavailable Unavailable CarsonRoyal gabriel MD Unavailable Unavailable CarsonRoyal gabriel MD Unavailable Unavailable CarsonRoyal gabriel MD Unavailable Unavailable CarsonRoyal gabriel MD Unavailable Unavailable ElRoyal gabriel MD Unavailable Unavailable CarsonRoyal gabriel MD Unavailable Unavailable CarsonRoyal gabriel MD Unavailable Unavailable ElRoyal gabriel MD Unavailable Unavailable Royal Gallegos MD Unavailable Unavailable CarsonRoyal gabriel MD Unavailable Unavailable CarsonRoyal gabriel MD Unavailable Unavailable ElRoyal gabriel MD Unavailable Unavailable ElRoyal gabriel MD Unavailable Unavailable Royal Gallegos MD Unavailable Unavailable Royal Gallegos MD Unavailable Unavailable Royal Gallegos MD Unavailable Unavailable CarsonRoyal gabriel MD Unavailable Unavailable CarsonRoyal gabriel MD Unavailable Unavailable Royal Gallegos MD Unavailable Unavailable CarsonRoyal gabriel MD Unavailable Unavailable CarsonRoyal gabriel MD Unavailable Unavailable ElRoyal gabriel MD Unavailable Unavailable Royal Gallegos MD Unavailable Unavailable CarsonRoyal gabriel MD Unavailable Unavailable ElRoyal gabriel MD Unavailable Unavailable ElRoyal gabriel MD Unavailable Unavailable CarsonRoyal gabriel MD Unavailable Unavailable ElRoyal MD Unavailable Unavailable CarsonRoyal gabriel MD Unavailable Unavailable CarsonRoyal gabriel MD Unavailable Unavailable ElRoyal gabriel MD Unavailable Unavailable CarsonRoyal gabriel MD Unavailable Unavailable ElRoyal gabriel MD Unavailable Unavailable CarsonRoyal gabriel MD Unavailable Unavailable ElRoyal gabriel MD Unavailable Unavailable ElRoyal gabriel MD Unavailable Unavailable CarsonRoyal MD Unavailable Unavailable CarsonRoyal MD Unavailable Unavailable CarsonRoyal MD Unavailable Unavailable ElRoyal MD Unavailable Unavailable CarsonRoyal MD Unavailable Unavailable CarsonRoyal MD Unavailable Unavailable ElRoyal MD Unavailable Unavailable ElRoyal MD Unavailable Unavailable CarsonRoyal MD Unavailable Unavailable ElRoyal MD Unavailable Unavailable ElRoyal MD Unavailable Unavailable ElRoyal MD Unavailable Unavailable ElRoyal MD Unavailable Unavailable ElRoyal MD Unavailable Unavailable CarsonRoyal MD Unavailable Unavailable CarsonRoyal MD Unavailable Unavailable ElRoyal MD Unavailable Unavailable ElRoyal MD Unavailable Unavailable ElRoyal MD Unavailable Unavailable CarsonRoyal MD Unavailable Unavailable ElRoyal MD Unavailable Unavailable CarsonRoyal gabriel MD Unavailable Unavailable CarsonRoyal MD Unavailable Unavailable ElRoyal MD Unavailable Unavailable ElRoyal MD Unavailable Unavailable CarsonRoyal MD Unavailable Unavailable CarsonRoyal gabriel MD Unavailable Unavailable ElRoyal gabriel MD Unavailable Unavailable ElRoyal gabriel MD Unavailable Unavailable CarsonRoyal MD Unavailable Unavailable CarsonRoyal gabriel MD Unavailable Unavailable CarsonRoyal MD Unavailable Unavailable CarsonRoyal MD Unavailable Unavailable CarsonRoyal gabriel MD Unavailable Unavailable CarsonRoyal gabriel MD Unavailable Unavailable ElRoyal gabriel MD Unavailable Unavailable CarsonRoyal gabriel MD Unavailable Unavailable ElRoyal gabriel MD Unavailable Unavailable ElRoyal gabriel MD Unavailable Unavailable ElRoyal gabriel MD Unavailable Unavailable ElRoyal gabriel MD Unavailable Unavailable LeRoyal gabriel MD Unavailable Unavailable CarsonRoyal gabriel MD Unavailable Unavailable CarsonRoyal gabriel MD Unavailable Unavailable ElRoyal MD Unavailable Unavailable ElRoyal MD Unavailable Unavailable PICKVERITO JR, J NORBERT PA-C Unavailable Unavailable PICKERAL JR, J NORBERT PA-C Unavailable Unavailable PICKERAL JR, J NORBERT PA-C Unavailable Unavailable PICKVERITO JR, J NORBERT PA-C Unavailable Unavailable PICKERAL JR, J NORBERT PA-C Unavailable Unavailable PICKERAL JR, J NORBERT PA-C Unavailable Unavailable PICKERAL JR, J NORBERT PA-C Unavailable Unavailable PICKERAL JR, J NORBERT PA-C Unavailable Unavailable PICKERAL JR, J NORBERT PA-C Unavailable Unavailable PICKERAL JR, J NORBERT PA-C Unavailable Unavailable PICKERAL JR, J NORBERT PA-C Unavailable Unavailable PICKERAL JR, J NORBERT PA-C Unavailable Unavailable PICKERAL JR, J NORBERT PA-C Unavailable Unavailable PICKERAL JR, J NORBERT PA-C Unavailable Unavailable PICKERAL JR, J NORBERT PA-C Unavailable Unavailable PICKERAL JR, J NORBERT PA-C Unavailable Unavailable PICKERAL JR, J NORBERT PA-C Unavailable Unavailable PICKERAL JR, J NORBERT PA-C Unavailable Unavailable PICKERAL JR, J NORBERT PA-C Unavailable Unavailable PICKERAL JR, J NORBERT PA-C Unavailable Unavailable PICKERAL JR, J NORBERT PA-C Unavailable Unavailable ONTIVEROS, M EMMA PA Unavailable Unavailable ONTIVEROS, M EMMA PA Unavailable Unavailable ONTIVEROS, M EMMA PA Unavailable Unavailable ONTIVEROS, M EMMA PA Unavailable Unavailable ONTIVEROS, M EMMA PA Unavailable Unavailable ONTIVEROS, M EMMA PA Unavailable Unavailable ONTIVEROS, M EMMA PA Unavailable Unavailable ONTIVEROS, M EMMA PA Unavailable Unavailable ONTIVEROS, M EMMA PA Unavailable Unavailable ONTIVEROS, M EMMA PA Unavailable Unavailable ONTIVEROS, M EMMA PA Unavailable Unavailable ONTIVEROS, M EMMA PA Unavailable Unavailable ONTIVEROS, M EMMA PA Unavailable Unavailable ONTIVEROS, M EMMA PA Unavailable Unavailable ONTIVEROS, M EMMA PA Unavailable Unavailable ONTIVEROS, M EMMA PA Unavailable Unavailable ONTIVEROS, M EMMA PA Unavailable Unavailable ONTIVEROS, M EMMA PA Unavailable Unavailable ONTIVEROS, M EMMA PA Unavailable Unavailable ONTIVEROS, M EMMA PA Unavailable Unavailable ONTIVEROS, M EMMA PA Unavailable Unavailable ONTIVEROS, M EMMA PA Unavailable Unavailable ONTIVEROS, M EMMA PA Unavailable Unavailable ONTIVEROS, M EMMA PA Unavailable Unavailable ONTIVEROS, M EMMA PA Unavailable Unavailable ONTIVEROS, M EMMA PA Unavailable Unavailable ONTIVEROS, M EMMA PA Unavailable Unavailable ONTIVEROS, M EMMA PA Unavailable Unavailable ONTIVEROS, M EMMA PA Unavailable Unavailable ONTIVEROS, M EMMA PA Unavailable Unavailable ONTIVEROS, M EMMA PA Unavailable Unavailable ONTIVEROS, M EMMA PA Unavailable Unavailable ONTIVEROS, M EMMA PA Unavailable Unavailable Re-disclosure Warning The records that you are about to access may contain information from federally-assisted alcohol or drug abuse programs. If such information is present, then the following federally mandated warning applies: This information has been disclosed to you from records protected by federal confidentiality rules (42 CFR part 2). The federal rules prohibit you from making any further disclosure of this information unless further disclosure is expressly permitted by the written consent of the person to whom it pertains or as otherwise permitted by 42 CFR part 2. A general authorization for the release of medical or other information is NOT sufficient for this purpose. The Federal rules restrict any use of the information to criminally investigate or prosecute any alcohol or drug abuse patient.The records that you are about to access may contain highly sensitive health information, the redisclosure of which is protected by Article 27-F of the [facility] Public Health law. If you continue you may have access to information: Regarding HIV / AIDS; Provided by facilities licensed or operated by the [facility] Office of Mental Health; or Provided by the [facility] Office for People With Developmental Disabilities. If such information is present, then the following [facility] mandated warning applies: This information has been disclosed to you from confidential records which are protected by state law. State law prohibits you from making any further disclosure of this information without the specific written consent of the person to whom it pertains, or as otherwise permitted by law. Any unauthorized further disclosure in violation of state law may result in a fine or usp sentence or both. A general authorization for the release of medical or other information is NOT sufficient authorization for further disc losure. Family History Family Member Name Family Member Gender Family Member Status Date o f Status Description Data Source(s) Unknown Unknown Problem [facility] ([facility]) Unknown Male Problem [facility] ([facility]) Encounters Encounter Providers Location Date Indications Data Source(s ) Outpatient Attender: NORBERT Reddy 0 08/01/2020 09:00:00 AM EST [facility] ([facility] ) Outpatient Attender: NORBERT Reddy 0 07/18/2020 07:20:00 AM EST [facility] ([facility] ) Outpatient Attender: EMMA Elise/Maci/Reymundo/Guillermo dl 04/19/2020 09:00:00 AM EDT [facility] ([facility] ) Outpatient Attender: Darshan Reddy 1 09:20:00 AM EDT [facility] ([facility] ) Outpatient Attender: Irving Main MD Main Office 03/03/2020 10:45:00 AM EDT [facility] ([facility]) Outpatient Attender: EMMA Elise/Bolivar/Reymundo/Rein dl 02/01/2020 09:30:00 AM EDT [facility] ([facility]) Outpatient Attender: EMMA Elise/Bolivar/Reymundo/Rein dl 12/21/2019 10:30:00 AM EDT [facility] ([facility]) Outpatient Attender: NORBERT Reddy 0 11/30/2019 08:00:00 AM EDT [facility] ([facility] ) Outpatient Attender: Darshan Reddy 0 09/25/2019 09:00:00 AM EDT [facility] ([facility] ) Immunizations Vaccine Date Status Description Data Source(s) New in 2011. IIV4 04/27/2020 07:23:00 AM EST completed [facility] ([facility], ) Influenza, injectable, MDCK, preservative free, konstantin valent 03/29/2020 09:18:00 AM EDT completed [facility] ([facility]) Medications Medication Brand Name Start Date Product Form Dose Route Admi nistrative Instructions Pharmacy Instructions Status Indications Reaction Description Data Source(s) Amlodipine 10 MG Oral Tablet Amlodipine Besylate 08/01/2020 12:00:00 AM EST ORAL active [facility] ([facility]) Lisinopril 10 MG Oral Tablet Lisinopril 07/18/2020 12:00:00 AM EST active [facility] ([facility]) Hydrochlorothiazide 12.5 MG / Lisinopril 20 MG Oral Ta blet Lisinopril-Hydrochlorothiazide 07/18/2020 12:00:00 AM EST ORAL active [facility] ([facility] ) Amlodipine 5 MG Oral Tablet Amlodipine Besylate 06/13/2020 12:00:00 A M EST ORAL completed [facility]) Omeprazole 20 MG Delayed Release Oral Capsule Omeprazole 03/29/2020 12:00:00 AM EDT ORAL active [facility] ([facility]) Immunization Adminstration,1 Vaccine/Toxoid 03/29/2020 12:00 :00 AM EDT completed [facility] ([facility]) Medication administered onsite CPAP 02/26/2020 12:00:00 AM EDT active [facility] ([facility], ) Insurance Providers Payer name Policy type / Coverage type Policy ID Covered green party ID Covered green party's relationship to sheldon Policy Sheldon Plan Information [place] P[place] 302/307 [id number] SP [id number] RENZI BROTHERS SP EULALIO [facility] [id number] SP [id number] EXCELLUS BCBS B [id number] S [id number] [place] Commercial [id number] Self [id number] [place] PPO 302/307 [id number] SP [id number] [place] [employer] [id number] Self [id number] [place] Trad/[place] Commercial [id number] Self [id number] [facility] Medigap Part B [id number] Self [id number] [place] Trad/[place] Medigap Part B [id number] Self [id number] [place] Trad/[place] Medigap Part B [id number] Self [id number] [employer] Compensation [id number] Self [id number] BCBS/[place] Commercial [id number] Self [id number] [employer] Workers Compensation [id number] Self [id number] [place] Trad/[place] Commercial [id number] Self [id number] [place] Commercial [id number] Self [id number] [place] Commercial [id number] Self [id number] BCBS/[employer] Commercial [id number] Self [id number] [place] Commercial [id number] Self [id number] EXCELLUS BCBS B [id number] S [id number] [place] [employer] Compensation [id number] Self [id number] EULALIO CLAIM SERVICES O [id number] S [id number] [place] Commercial [id number] Self [id number] [place] [employer] [id number] Self [id number] [place] PPO 302/307 [id number] SP [id number] [employer] [place] Commercial [id number] Self [id number] [place] Commercial Self [employer] Medigap Part B Ppo Self Ppo [place] Trad/MX Commercial 802 Self 802 [place] Trad/[place] Commercial 802 Self 802 [place] [employer] Compensation Self [place] Trad/[place] Commercial 802 Self 802 BCBS/[place] Medigap Part B Self [employer] Workers Compensation Self EULALIO WORKERS COMP P [id number] S [id number] EULALIO [facility] [id number] SP [id number] RENZI BROS [id number] SP [id number] RENZI BROS [id number] SP [id number] Problems, Conditions, and Diagnoses Code Display Name Description Problem Type Effective Dates Data Source(s) [id number] Obstructive sleep apnea syndrome Obstructive sle ep apnea syndrome Problem 02/01/2020 12:00:00 AM EDT [facility] ([facility]) Results ID Date Data Source [id number] 08/01/2020 10:25:00 AM EST [facility] ([facility]) Name Value Range Interpretation Code Description Data Corinne rce(s) Supporting Document(s) Glucose [Mass/volume] in Serum or Plasma 126 mg/dL 74-99 [facility] ([facility]) 100-125 mg/dL PRE-DIABETES/FASTING >126 mg/dL DIABETES/FASTING Creatinine 0.9 mg/dL 0.6-1.3 [facility]) Urea nitrogen [Mass/volume] in Serum or Plasma 15 mg/dL 7-18 [facility] ([facility]) Potassium [Moles/volume] in Serum or Plasma 4.1 meq/L 3.5-5.1 [facility] Sodium [Moles/volume] in Serum or Plasma 139 meq/L 136-145 [facility] ([facility]) Chloride [Moles/volume] in Serum or Plasma 101 meq/L 98-107 [facility] Calcium [Mass/volume] in Serum or Plasma 9.3 mg/dL 8.5-10.1 [facility] ([facility]) Glomerular filtration rate/1.73 sq M pre dicted among non-blacks [Volume Rate/Area] in Serum or Plasma by Creatinine-based formula (MDRD) Laboratory test result [facility] ([facility] ) Carbon dioxide, total [Moles/volume] in Serum or Plasma 29 meq/L 21 -32 [facility] ([facility]) Glomerular filtration rate/1.73 sq M pre dicted among blacks [Volume Rate/Area] in Serum or Plasma by Creatinine-based formula (MDRD) Laboratory test result [facility] ([facility]) <content>CHRONIC KIDNEY DISEASE STAGING PER NKF</content>
<content></content>
<content>STAGE I & II GFR >= 60 NORMAL TO MILDLY DECREASED</content>
<content>STAGE III GFR 30-59 MODERATELY DECREASED</content>
<content>STAGE IV GFR 15-29 SEVERELY DECREASED</content>
<content>STAGE V GFR <15 VERY LITTLE GFR LEFT</content>
<content>ESRD GFR <15 ON SERGING MACHINE OPERATOR</content>
<content></content> ID Date Data Source [id number] 03/29/2020 09:36:00 AM EDT [facility] Name Value Range Interpretation Code Description Data Corinne rce(s) Supporting Document(s) Cholesterol [Mass/volume] in Serum or Plasma 171 mg/dL 131-200 [facility] ([facility]) Triglyceride [Mass/volume] in Serum or Plasma 296 mg/dL 30-150 [facility] Cholesterol in HDL [Mass/volume] in Serum or Plasma 34 mg/dL 35-60 [facility] ([facility]) Cholesterol in LDL [Mass/volume] in Serum or Plasma by calcu lation 78 CALC 50-159 [facility] ([facility]) ID Date Data Source [id number] 03/29/2020 09:36:00 AM EDT [facility] ([facility]) Name Value Range Interpretation Code Description Data Corinne rce(s) Supporting Document(s) Urea nitrogen [Mass/volume] in Serum or Plasma 13 mg/dL 7-18 [facility] ([facility]) Glucose [Mass/volume] in Serum or Plasma 109 mg/dL 74-99 [facility] ([facility]) 100-125 mg/dL PRE-DIABETES/FASTING >126 mg/dL DIABETES/FASTING Creatinine 0.9 mg/dL 0.6-1.3 [facility] ([facility] Sodium [Moles/volume] in Serum or Plasma 139 meq/L 136-145 [facility] ([facility]) Potassium [Moles/volume] in Serum or Plasma 3.9 meq/L 3.5-5.1 [facility] ([facility]) Chloride [Moles/volume] in Serum or Plasma 101 meq/L 98-107 [facility] ([facility]) Calcium [Mass/volume] in Serum or Plasma 9.5 mg/dL 8.5-10.1 [facility] ([facility]) Carbon dioxide, total [Moles/volume] in Serum or Plasma 27 meq/L 21 -32 [facility] ([facility]) Alkaline phosphatase isoenzyme [Units/volume] in Serum or Pl asma 61 mg/dL 46-116 [facility] ([facility]) Total Bilirubin 0.6 mg/dL 0.2-1.0 [facility] ([facility]) Alanine aminotransferase [Enzymatic activity/volume] in Seru m or Plasma 77 U/L 12-78 [facility] ([facility]) Aspartate aminotransferase [Enzymatic activity/volume] in Serum or Plasma 32 U/L 15-37 [facility] ([facility] ) A/G Ratio 1.36 CALC 1.00-1.90 [facility]) Proteinase 3 Ab [Units/volume] in Serum 7.8 g/dL 6.4-8.2 [facility] Albumin [Mass/volume] in Serum or Plasma 4.5 g/dL 3.4-5.0 [facility] Glomerular filtration rate/1.73 sq M pre dicted among non-blacks [Volume Rate/Area] in Serum or Plasma by Creatinine-based formula (MDRD) Laboratory test result [facility] ([facility] ) Glomerular filtration rate/1.73 sq M pre dicted among blacks [Volume Rate/Area] in Serum or Plasma by Creatinine-based formula (MDRD) Laboratory test result [facility] ([facility]) <content>CHRONIC KIDNEY DISEASE STAGING PER NKF</content>
<content></content>
<content>STAGE I & II GFR >= 60 NORMAL TO MILDLY DECREASED</content>
<content>STAGE III GFR 30-59 MODERATELY DECREASED</content>
<content>STAGE IV GFR 15-29 SEVERELY DECREASED</content>
<content>STAGE V GFR <15 VERY LITTLE GFR LEFT</content>
<content>ESRD GFR <15 ON SERGING MACHINE OPERATOR</content>
<content></content> ID Date Data Source [id number] 03/29/2020 09:36:00 AM EDT [facility]) Name Value Range Interpretation Code Description Data Corinne rce(s) Supporting Document(s) Glucose mean value [Mass/volume] in Blood Estimated fr om glycated hemoglobin 134 mg/dL 60-110 [facility] ([facility] ) Hemoglobin A1c/Hemoglobin.total in Blood 6.3 % [facility] ([facility]) Lab Result Notes: Pre-Diabetes 5.7 - 6.4 % Diabetes = or > 6.5% ID Date Data Source [id number] 03/29/2020 09:36:00 AM EDT [facility]) Name Value Range Interpretation Code Description Data Corinne rce(s) Supporting Document(s) Leukocytes [#/volume] in Blood by Automated count 7.4 x10*3/UL 4.1-10 .9 [facility] Hemoglobin [Mass/volume] in Blood 15.5 g/dL 12.0-18.0 [facility] Erythrocytes [#/volume] in Blood by Automated count 5.05 x10*6/UL 4.2 0-6.30 [facility] ([facility]) MCV 86.1 fL 80.0-97.0 [facility] ([facility]) MCH 30.8 pg 26.0-32.0 [facility] ([facility]) Hematocrit [Volume Fraction] of Blood by Automated count 43.4 % 3 7.0-51.0 [facility] MCHC 35.7 g/dL 31.0-38.0 [facility] ([facility]) Erythrocyte distribution width [Ratio] by Automated count 12.4 % 11.6-13.7 [facility] Platelets [#/volume] in Blood by Automated count 280 x10*3/UL 140-440 [facility] Mid % 8.8 % 1.7-9.3 [facility] ([facility]) Lymph % 31.1 % 10.0-58.5 [facility] ([facility]) MPV 7.3 FL 7.8-11.0 [facility] ([facility]) Lymph # 2.3 x10*3/UL 0.6-4.1 [facility] ([facility]) Mid # 0.7 x10*3/UL 0.1-0.6 [facility] ([facility]) Neut % 60.1 % 37.0-92.0 [facility] ([facility]) Neut # 4.4 x10*3/UL 2.0-7.8 [facility] ([facility]) ID Date Data Source [id number] 09/25/2019 09:22:00 AM EDT [facility] ([facility]) Name Value Range Interpretation Code Description Data Corinne rce(s) Supporting Document(s) Glucose [Mass/volume] in Serum or Plasma 110 mg/dL 74-99 [facility] ([facility]) 100-125 mg/dL PRE-DIABETES/FASTING >126 mg/dL DIABETES/FASTING Urea nitrogen [Mass/volume] in Serum or Plasma 13 mg/dL 7-18 [facility] ([facility]) Creatinine 1.2 mg/dL 0.6-1.3 [facility] ([facility]) Sodium [Moles/volume] in Serum or Plasma 136 meq/L 136-145 [facility] ([facility]) Chloride [Moles/volume] in Serum or Plasma 100 meq/L 98-107 [facility] ([facility]) Potassium [Moles/volume] in Serum or Plasma 3.8 meq/L 3.5-5.1 [facility] ([facility]) Carbon dioxide, total [Moles/volume] in Serum or Plasma 27 meq/L 21 -32 [facility] ([facility]) Alkaline phosphatase isoenzyme [Units/volume] in Serum or Pl asma 53 mg/dL 46-116 [facility] ([facility]) Total Bilirubin 0.9 mg/dL 0.2-1.0 [facility] ([facility]) Calcium [Mass/volume] in Serum or Plasma 8.8 mg/dL 8.5-10.1 [facility] ([facility]) Alanine aminotransferase [Enzymatic activity/volume] in Seru m or Plasma 94 U/L 12-78 [facility] ([facility]) Albumin [Mass/volume] in Serum or Plasma 4.4 g/dL 3.4-5.0 [facility] ([facility]) Aspartate aminotransferase [Enzymatic activity/volume] in Serum or Plasma 19 U/L 15-37 [facility] ([facility] ) A/G Ratio 1.22 CALC 1.00-1.90 [facility] ([facility]) Proteinase 3 Ab [Units/volume] in Serum 8.0 g/dL 6.4-8.2 [facility] ([facility]) Glomerular filtration rate/1.73 sq M pre dicted among non-blacks [Volume Rate/Area] in Serum or Plasma by Creatinine-based formula (MDRD) Laboratory test result [facility] ([facility] ) Glomerular filtration rate/1.73 sq M pre dicted among blacks [Volume Rate/Area] in Serum or Plasma by Creatinine-based formula (MDRD) Laboratory test result [facility] <content>CHRONIC KIDNEY DISEASE STAGING PER NKF</content>
<content></content>
<content>STAGE I & II GFR >= 60 NORMAL TO MILDLY DECREASED</content>
<content>STAGE III GFR 30-59 MODERATELY DECREASED</content>
<content>STAGE IV GFR 15-29 SEVERELY DECREASED</content>
<content>STAGE V GFR <15 VERY LITTLE GFR LEFT</content>
<content>ESRD GFR <15 ON SERGING MACHINE OPERATOR</content>
<content></content> ID Date Data Source [id number] 09/25/2019 09:22:00 AM EDT [facility] Name Value Range Interpretation Code Description Data Corinne rce(s) Supporting Document(s) Glucose mean value [Mass/volume] in Blood Estimated fr om glycated hemoglobin 125 mg/dL 60-110 [facility] Hemoglobin A1c/Hemoglobin.total in Blood 6.0 g/dL 4.8-5.6 [facility] Lab Result Notes: Pre-Diabetes 5.7 - 6.4 % Diabetes = or > 6.5% ID Date Data Source [id number] 09/25/2019 09:22:00 AM EDT [facility] Name Value Range Interpretation Code Description Data Corinne rce(s) Supporting Document(s) Leukocytes [#/volume] in Blood by Automated count 6.9 x10*3/UL 4.1-10 .9 [facility] ([facility]) Erythrocytes [#/volume] in Blood by Automated count 5.19 x10*6/UL 4.2 0-6.30 [facility] ([facility]) Hemoglobin [Mass/volume] in Blood 15.7 g/dL 12.0-18.0 [facility] ([facility]) Hematocrit [Volume Fraction] of Blood by Automated count 45.1 % 3 7.0-51.0 [facility] ([facility]) MCV 86.8 fL 80.0-97.0 [facility]) MCH 30.3 pg 26.0-32.0 [facility] MCHC 34.9 g/dL 31.0-38.0 [facility] Erythrocyte distribution width [Ratio] by Automated count 12.6 % 11.6-13.7 [facility] ([facility]) Lymph % 44.0 % 10.0-58.5 [facility] Platelets [#/volume] in Blood by Automated count 321 x10*3/UL 140-440 [facility] ([facility]) MPV 7.1 FL 7.8-11.0 [facility] Lymph # 3.0 x10*3/UL 0.6-4.1 [facility] ([facility]) Mid % 8.3 % 1.7-9.3 [facility] Neut % 47.7 % 37.0-92.0 [facility] Neut # 3.3 x10*3/UL 2.0-7.8 [facility] ([facility]) Mid # 0.6 x10*3/UL 0.1-0.6 [facility] ([facility]) Procedure Social History Code Duration Value Status Description Data Source(s ) Smoking 06/10/2020 12:00:00 AM EST Patient has never smoked co mpleted Patient has never smoked [facility] ([facility], ) Vital Signs ID Date Data Source UNK Name Value Range Interpretation Code Description Data Source(s) Body mass index (BMI) [Ratio] 55.1 kg/m2 55.1 k g/m2 [facility] ([facility]) Body weight 357.00 [lb_av] 357.00 [lb_av] [facility] ([facility]) Body height 67.50 [in_i] 67.50 [in_i] [facility] ([facility]) 5'7.50" Heart rate 83 /min 83 /min [facility] ([facility]) Diastolic blood pressure 90 mm[Hg] 90 mm[Hg] [facility] ([facility]) Systolic blood pressure 150 mm[Hg] 150 mm[Hg] M [facility] ([facility]) Body mass index (BMI) [Ratio] 55.9 kg/m2 55.9 k g/m2 [facility] ([facility]) Body weight 362.00 [lb_av] 362.00 [lb_av] [facility] T ([facility]) Body height 67.50 [in_i] 67.50 [in_i] [facility] ([facility]) 5'7.50" Heart rate 81 /min 81 /min [facility] ([facility]) Diastolic blood pressure 100 mm[Hg] 100 mm[Hg] [facility] ([facility]) Systolic blood pressure 160 mm[Hg] 160 mm[Hg] [facility] ([facility]) Body surface area Derived from formula 2.61 m2 2.61 m2 [facility] ([facility]) Body weight 165.110 kg 165.110 kg [facility] ([facility]) [place] body weight 148 [lb_av] 148 [lb_av] [facility] ([facility]) Body mass index (BMI) [Ratio] 57.0 kg/m2 57.0 k g/m2 [facility] ([facility]) Body weight 364.00 [lb_av] 364.00 [facility]_av] [facility] Body height 67 [in_i] 67 [in_i] [facility] ([facility]) 5'7" Oxygen saturation in Arterial blood by Pulse oximetry 98 % 98 % [facility] ([facility]) Heart rate 83 /min 83 /min [facility] ([facility]) Diastolic blood pressure 98 mm[Hg] 98 mm[Hg] [facility] ([facility]) Systolic blood pressure 138 mm[Hg] 138 mm[Hg] M [facility] ([facility]) Body surface area Derived from formula 2.59 m2 2.59 m2 [facility] ([facility]) Body weight 162.389 kg 162.389 kg [facility] ([facility]) [place] body weight 148 [lb_av] 148 [lb_av] [facility] ([facility]) Body mass index (BMI) [Ratio] 56.1 kg/m2 56.1 k g/m2 [facility] ([facility]) Body weight 358.00 [lb_av] 358.00 [lb_av] [facility] ([facility]) Body height 67 [in_i] 67 [in_i] [facility] ([facility]) 5'7" Oxygen saturation in Arterial blood by Pulse oximetry 98 % 98 % [facility] ([facility]) Heart rate 76 /min 76 /min [facility] ([facility]) Diastolic blood pressure 96 mm[Hg] 96 mm[Hg] [facility] ([facility]) Systolic blood pressure 142 mm[Hg] 142 mm[Hg] [facility] Body mass index (BMI) [Ratio] 55.1 kg/m2 55.1 k g/m2 [facility] ([facility]) Body weight 357.00 [lb_av] 357.00 [lb_av] [facility] ([facility]) Body height 67.50 [in_i] 67.50 [in_i] [facility] ([facility]) 5'7.50" Heart rate 74 /min 74 /min [facility] ([facility]) Diastolic blood pressure 72 mm[Hg] 72 mm[Hg] [facility] ([facility]) Systolic blood pressure 136 mm[Hg] 136 mm[Hg] [facility] Body weight 161.482 kg 161.482 kg [facility] Body mass index (BMI) [Ratio] 55.8 kg/m2 55.8 k g/m2 [facility] ([facility]) Heart rate 87 /min 87 /min [facility] ([facility]) Diastolic blood pressure 87 mm[Hg] 87 mm[Hg] [facility] ([facility]) Systolic blood pressure 131 mm[Hg] 131 mm[Hg] [facility] Body weight 356.00 [lb_av] 356.00 [lb_av] [facility] ([facility]) Temp 97.0 Body height 67 [in_i] 67 [in_i] [facility] ([facility]) 5'7" Body weight 159.384 kg 159.384 kg [facility] ([facility]) Body mass index (BMI) [Ratio] 55.0 kg/m2 55.0 k g/m2 [facility] ([facility]) Body weight 351.38 [lb_av] 351.38 [lb_av] [facility] ([facility]) Body height 67 [in_i] 67 [in_i] [facility] ([facility]) 5'7" Body temperature 96.9 [degF] 96.9 [degF] [facility] ([facility]) Oxygen saturation in Arterial blood by Pulse oximetry 97 % 97 % [facility] ([facility]) Heart rate 84 /min 84 /min [facility] ([facility]) Diastolic blood pressure 86 mm[Hg] 86 mm[Hg] [facility] ([facility]) Systolic blood pressure 148 mm[Hg] 148 mm[Hg] [facility] ([facility]) Body weight 162.616 kg 162.616 kg [facility] ([facility]) Body mass index (BMI) [Ratio] 56.1 kg/m2 56.1 k g/m2 [facility] ([facility]) Body weight 358.50 [lb_av] 358.50 [lb_av] [facility] Body height 67 [in_i] 67 [in_i] [facility] ([facility]) 5'7" Body temperature 96.7 [degF] 96.7 [degF] [facility] ([facility]) Oxygen saturation in Arterial blood by Pulse oximetry 96 % 96 % [facility] ([facility]) Heart rate 94 /min 94 /min [facility] ([facility]) Diastolic blood pressure 96 mm[Hg] 96 mm[Hg] [facility] ([facility]) Systolic blood pressure 144 mm[Hg] 144 mm[Hg] [facility] ([facility]) Body mass index (BMI) [Ratio] 54.8 kg/m2 54.8 k g/m2 [facility] ([facility]) Oxygen saturation in Arterial blood by Pulse oximetry 95 % 95 % [facility] ([facility]) Body weight 355.00 [lb_av] 355.00 [lb_av] [facility] ([facility]) Body height 67.50 [in_i] 67.50 [in_i] [facility] ([facility]) 5'7.50" Heart rate 88 /min 88 /min [facility] ([facility]) Diastolic blood pressure 76 mm[Hg] 76 mm[Hg] [facility] ([facility]) Systolic blood pressure 146 mm[Hg] 146 mm[Hg] [facility] ([facility]) Body mass index (BMI) [Ratio] 54.5 kg/m2 54.5 k g/m2 [facility] ([facility]) Body weight 353.00 [lb_av] 353.00 [lb_av] [facility] ([facility]) Body height 67.50 [in_i] 67.50 [in_i] [facility] ([facility]) 5'7.50" Diastolic blood pressure 62 mm[Hg] 62 mm[Hg] [facility] ([facility]) Systolic blood pressure 136 mm[Hg] 136 mm[Hg] [facility] ([facility]) Body mass index (BMI) [Ratio] 53.7 kg/m2 53.7 k g/m2 [facility] ([facility]) Body weight 348.00 [lb_av] 348.00 [lb_av] [facility] ([facility]) Body height 67.50 [in_i] 67.50 [in_i] [facility] ([facility]) 5'7.50" Diastolic blood pressure 100 mm[Hg] 100 mm[Hg] [facility] ([facility]) Systolic blood pressure 148 mm[Hg] 148 mm[Hg] [facility] ([facility])
[2020-08-14] MEDS ORDERED: AMLO1TAB24 (12:18)
[2020-08-14] MEDS ORDERED: GABAPENTIN 300 MG CAP PO ONE (13:00)
[2020-08-14 13:34] LABS: BASO % 0.5 % (0.0-1.0); EOS # 0.1 10^3/uL (0.0-0.5); EOS % 1.4 % (0.0-3.0); HEMATOCRIT 45.7 % (42.0-52.0); HEMOGLOBIN 15.4 g/dl (13.5-17.5); LYMPH # 2.1 10^3/uL (1.5-5.0); LYMPH % 32.6 % (24.0-44.0); MEAN CORPUSCULAR HEMOGLOBIN 29.9 pg (27.0-33.0); MEAN CORPUSCULAR HGB CONC 33.7 g/dl (32.0-36.5); MEAN CORPUSCULAR VOLUME 88.7 fl (80.0-96.0); MONO # 0.9 10^3/uL (0.0-0.8); MONO % 13.3 % (2.0-8.0); NEUTROPHILS # 3.4 10^3/uL (1.5-8.5); PLATELET COUNT, AUTOMATED 317 10^3/uL (150-450); RED BLOOD COUNT 5.15 10^6/uL (4.30-6.10); WHITE BLOOD COUNT 6.6 10^3/uL (4.0-10.0)
--- OUTSIDE RECORDS SUMMARY | 2020-08-14 13:34 | CCD ---
Author Author [facility] Organization [facility] Address Unknown Phone Unavailable Care Team Providers Care Accounting Technician Name Role Phone Lane Main MD Unavailable [...] Unavailable Unavailable Lane Main MD Unavailable Unavailable Lnae Main MD Unavailable Unavailable Lane Main MD [...] Unavailable Unavailable Lane Main MD Unavailable Unavailable OsmondRoyal gabriel MD Unavailable Unavailable OsmondRoyal MD Unavailable Unavailable ElRoyal MD Unavailable Unavailable ElRoyal MD Unavailable Unavailable OsmondRoyal gabriel MD Unavailable Unavailable ElRoyal gabriel MD Unavailable Unavailable ElRoyal gabriel MD Unavailable Unavailable ElRoyal MD Unavailable Unavailable OsmondRoyal gabriel MD Unavailable Unavailable ElRoyal gabriel MD Unavailable Unavailable ElRoyal gabriel MD Unavailable Unavailable ElRoyal gabriel MD Unavailable Unavailable OsmondRoyal gabriel MD Unavailable Unavailable OsmondRoyal gabriel MD Unavailable Unavailable ElRoyal gabriel MD Unavailable Unavailable OsmondRoyal gabriel MD Unavailable Unavailable ElRoyal gabriel MD Unavailable Unavailable ElRoyal gabriel MD Unavailable Unavailable ElRoyal gabriel MD Unavailable Unavailable OsmondRoyal gabriel MD Unavailable Unavailable ElRoyal gabriel MD Unavailable Unavailable ElRoyal gabriel MD Unavailable Unavailable ElRoyal gabriel MD Unavailable Unavailable OsmondRoyal gabriel MD Unavailable Unavailable ElRoyal gabriel MD Unavailable Unavailable ElRoyal gabriel MD Unavailable Unavailable ElRoyal gabriel MD Unavailable Unavailable ElRoyal gabriel MD Unavailable Unavailable OsmondRoyal gabriel MD Unavailable Unavailable ElRoyal gabriel MD Unavailable Unavailable OsmondRoyal gabriel MD Unavailable Unavailable ElRoyal MD Unavailable Unavailable OsmondRoyal MD Unavailable Unavailable ElRoyal gabriel MD Unavailable Unavailable ElRoyal gabriel MD Unavailable Unavailable OsmondRoyal MD Unavailable Unavailable OsmondRoyal MD Unavailable Unavailable ElRoyal MD Unavailable Unavailable ElRoyal MD Unavailable Unavailable OsmondRoyal MD Unavailable Unavailable Osmond, F Sexton MD Unavailable Unavailable ElRoyal MD Unavailable Unavailable OsmondRoyal MD Unavailable Unavailable ElRoyal MD Unavailable Unavailable OsmondRoyal MD Unavailable Unavailable OsmondRoyal MD Unavailable Unavailable ElRoyal MD Unavailable Unavailable OsmondRoyal MD Unavailable Unavailable ElRoyal MD Unavailable Unavailable OsmondRoyal MD Unavailable Unavailable ElRoyal MD Unavailable Unavailable ElRoyal MD Unavailable Unavailable ElRoyal MD Unavailable Unavailable OsmondRoyal MD Unavailable Unavailable ElRoyal MD Unavailable Unavailable OsmondRoyal MD Unavailable Unavailable ElRoyal MD Unavailable Unavailable OsmondRoyal MD Unavailable Unavailable OsmondRoyal MD Unavailable Unavailable ElRoyal MD Unavailable Unavailable OsmondRoyal MD Unavailable Unavailable ElRoyal MD Unavailable Unavailable OsmondRoyal MD Unavailable Unavailable ElRoyal MD Unavailable Unavailable OsmondRoyal gabriel MD Unavailable Unavailable OsmondRoyal MD Unavailable Unavailable OsmondRoyal MD Unavailable Unavailable OsmondRoyal gabriel MD Unavailable Unavailable OsmondRoyal gabriel MD Unavailable Unavailable ElRoyal MD Unavailable Unavailable ElRoyal MD Unavailable Unavailable ElRoyal MD Unavailable Unavailable ElRoyal MD Unavailable Unavailable ElRoyal gabriel MD Unavailable Unavailable OsmondRoyal gabriel MD Unavailable Unavailable ElRoyal gabriel MD Unavailable Unavailable ElRoyal gabriel MD Unavailable Unavailable ElRoyal gabriel MD Unavailable Unavailable OsmondRoyal gabriel MD Unavailable Unavailable OsmondRoyal gabriel MD Unavailable Unavailable OsmondRoyal gabriel MD Unavailable Unavailable ElRoyal gabriel MD Unavailable Unavailable ElRoyal gabriel MD Unavailable Unavailable OsmondRoyal gabriel MD Unavailable Unavailable OsmondRoyal MD Unavailable Unavailable ElRoyal MD Unavailable Unavailable PICKERAL JR, J NORBERT PA-C [...] is protected by Article 27-F of the [facility] Public Health law. If you continue you may have access to information: Regarding HIV / AIDS; Provided by facilities licensed or operated by the [facility] Office of Mental Health; or Provided by the [facility] Office for People With Developmental Disabilities. If such information is present, then the following [facility] mandated warning applies: This information has been [...] law may result in a fine or snf sentence or both. A general authorization for [...] Reddy 0 08/01/2020 09:00:00 AM EST [facility] ([facility] ) Outpatient Attender: NORBERT Reddy 0 07/18/2020 07:20:00 AM EST [facility] ([facility] ) Outpatient Attender: EMMA Elise/Maci/Reymundo/Guillermo dl 04/19/2020 09:00:00 AM EDT [facility] ([facility], ) Outpatient Attender: Darshan Reddy 1 09:20:00 AM EDT [facility] ([facility] ) Outpatient Attender: Irving Main MD Main Office 03/03/2020 10:45:00 AM EDT [facility] ([facility]) Outpatient Attender: EMMA Triplettang/Grimesland/Reymundo/Rein dl 02/01/2020 09:30:00 AM EDT [facility] ([facility]) Outpatient Attender: EMMA Elise/[place]/Reymundo/Rein dl 12/21/2019 10:30:00 AM EDT [facility] ([facility]) Outpatient Attender: NORBERT eRddy 0 11/30/2019 08:00:00 AM EDT [facility] ([facility] ) Outpatient Attender: Darshan Reddy 0 09/25/2019 09:00:00 AM EDT [facility] ([facility] ) Immunizations Vaccine Date Status Description Data Source(s) New in 2011. IIV4 04/27/2020 07:23:00 AM EST completed [facility] ([facility], ) Influenza, injectable, MDCK, preservative free, konstantin valent 03/29/2020 09:18:00 AM EDT completed [facility] Medications Medication Brand Name Start Date Product Form Dose Route Admi nistrative Instructions Pharmacy Instructions Status Indications Reaction Description Data Source(s) Amlodipine 10 MG Oral Tablet Amlodipine Besylate 08/01/2020 12:00:00 AM EST ORAL active [facility] ([facility]) Lisinopril 10 MG Oral Tablet Lisinopril 07/18/2020 12:00:00 AM EST active [facility] ([facility]) Hydrochlorothiazide 12.5 MG / Lisinopril 20 MG Oral Ta blet Lisinopril-Hydrochlorothiazide 07/18/2020 12:00:00 AM EST ORAL active [facility] ([facility] ) Amlodipine 5 MG Oral Tablet Amlodipine Besylate 06/13/2020 12:00:00 A M EST ORAL completed [facility] ([facility]) Omeprazole 20 MG Delayed Release Oral Capsule Omeprazole 03/29/2020 12:00:00 AM EDT ORAL active [facility] ([facility]) Immunization Adminstration,1 Vaccine/Toxoid 03/29/2020 12:00 :00 AM EDT completed [facility] ([facility]) Medication administered onsite CPAP 02/26/2020 12:00:00 AM EDT active [facility] ([facility], ) Insurance Providers Payer name Policy type / Coverage type Policy ID Covered alliance party ID Covered alliance party's relationship to sheldon Policy Sheldon Plan Information [place] P[place] 302/307 [id number] SP [id number] RENZI BROTHERS SP EULALIO [facility] [id number] SP [id number] EXCELLUS BCBS B [id number] S [id number] [id number] BS Of [place] Commercial [id number] Self [id number] [place] PPO 302/307 [id number] SP [id number] [employer] Workers Compensation [id number] Self [id number] BS [place] Trad/[place] Commercial [id number] Self [id number] [facility] Medigap Part B [id number] Self [id number] BS [place] Trad/[place] Medigap Part B [id number] Self [id number] BS [place] Trad/[place] Medigap Part B [id number] Self [id number] [employer] urSelf Workers Compensation [id number] Self [id number] BCBS/[employer]cell[employer] Commercial [id number] Self [id number] [employer] Workers Compensation [id number] Self [id number] BS [place] Trad/[place] Commercial [id number] Self [id number] BS Of [place] Commercial [id number] Self [id number] BS Of [place] Commercial [id number] Self [id number] BCBS/[employer] Commercial [id number] Self [id number] BS [place] Commercial [id number] Self [id number] EXCELLUS BCBS B [id number] S VYS [id number] [employer] Workers Compensation [id number] Self [id number] EULALIO [employer] SERVICES O [id number] S [id number] BS Of [place] Commercial [id number] Self [id number] [place] Workers Compensation [id number] Self [id number] [place] PPO 302/307 [id number] SP [id number] BS Of [place] Commercial [id number] Self [id number] BS [place] Commercial Self [employer] Medigap Part B Ppo Self Ppo BS [place] Trad/[place] Commercial 802 Self 802 BS [place] Trad/[place] Commercial 802 Self 802 [place] Workers Compensation Self BS [place] Trad/MX Commercial 802 Self 802 BCBS/[employer] Medigap Part B Self [employer] Workers Compensation Self EULALIO WORKERS COMP P [id number] S [id number] [facility]IO [facility] [id number] SP [id number] RENZI BROS [id number] SP [id number] RENZI BROS [id number] SP [id number] Problems, Conditions, and Diagnoses Code Display Name Description Problem Type Effective Dates Data Source(s) 30603096 Obstructive sleep apnea syndrome Obstructive sle ep apnea syndrome Problem 02/01/2020 12:00:00 AM EDT [facility] ([facility]) Results ID Date Data Source [id number] 08/01/2020 10:25:00 AM EST [facility] ([facility]) Name Value Range Interpretation Code Description Data Corinne rce(s) Supporting Document(s) Glucose [Mass/volume] in Serum or Plasma 126 mg/dL 74-99 [facility] ([facility]) 100-125 mg/dL PRE-DIABETES/FASTING >126 mg/dL DIABETES/FASTING Creatinine 0.9 mg/dL 0.6-1.3 [facility] Urea nitrogen [Mass/volume] in Serum or Plasma 15 mg/dL 7-18 [facility] ([facility]) Potassium [Moles/volume] in Serum or Plasma 4.1 meq/L 3.5-5.1 [facility] Sodium [Moles/volume] in Serum or Plasma 139 meq/L 136-145 [facility] ([facility]) Chloride [Moles/volume] in Serum or Plasma 101 meq/L 98-107 [facility]) Calcium [Mass/volume] in Serum or Plasma 9.3 mg/dL 8.5-10.1 [facility] Glomerular filtration rate/1.73 sq M pre dicted among non-blacks [Volume Rate/Area] in Serum or Plasma by Creatinine-based formula (MDRD) Laboratory test result [facility] ([facility] ) Carbon dioxide, total [Moles/volume] in Serum or Plasma 29 meq/L 21 -32 [facility] ([facility]) Glomerular filtration rate/1.73 sq M pre dicted among blacks [Volume Rate/Area] in Serum or Plasma by Creatinine-based formula (MDRD) [facility] <content>CHRONIC KIDNEY DISEASE STAGING PER NKF</content>
<content></content>
<content>STAGE I & II GFR >= 60 NORMAL TO MILDLY DECREASED</content>
<content>STAGE III GFR 30-59 MODERATELY DECREASED</content>
<content>STAGE IV GFR 15-29 SEVERELY DECREASED</content>
<content>STAGE V GFR <15 VERY LITTLE GFR LEFT</content>
<content>ESRD GFR <15 ON PILL MAKER</content>
<content></content> ID Date Data Source [id number] 03/29/2020 09:36:00 AM EDT [facility] ([facility] Name Value Range Interpretation Code Description Data Corinne rce(s) Supporting Document(s) Cholesterol [Mass/volume] in Serum or Plasma 171 mg/dL 131-200 [facility] ([facility]) Triglyceride [Mass/volume] in Serum or Plasma 296 mg/dL 30-150 [facility] Cholesterol in HDL [Mass/volume] in Serum or Plasma 34 mg/dL 35-60 [facility] ([facility]) Cholesterol in LDL [Mass/volume] in Serum or Plasma by calcu lation 78 CALC 50-159 [facility] ([facility]) ID Date Data Source [id number] 03/29/2020 09:36:00 AM EDT [facility] ([facility]) Name Value Range Interpretation Code Description Data Corinne rce(s) Supporting Document(s) Urea nitrogen [Mass/volume] in Serum or Plasma 13 mg/dL 7-18 [facility] ([facility]) Glucose [Mass/volume] in Serum or Plasma 109 mg/dL 74-99 [facility] ([facility]) 100-125 mg/dL PRE-DIABETES/FASTING >126 mg/dL DIABETES/FASTING Creatinine 0.9 mg/dL 0.6-1.3 [facility] Sodium [Moles/volume] in Serum or Plasma 139 meq/L 136-145 [facility] ([facility]) Potassium [Moles/volume] in Serum or Plasma 3.9 meq/L 3.5-5.1 [facility] ([facility]) Chloride [Moles/volume] in Serum or Plasma 101 meq/L 98-107 [facility] ([facility]) Calcium [Mass/volume] in Serum or Plasma 9.5 mg/dL 8.5-10.1 [facility] ([facility]) Carbon dioxide, total [Moles/volume] in Serum or Plasma 27 meq/L 21 -32 [facility] ([facility]) Alkaline phosphatase isoenzyme [Units/volume] in Serum or Pl asma 61 mg/dL 46-116 [facility] ([facility]) Total Bilirubin 0.6 mg/dL 0.2-1.0 [facility] ([facility]) Alanine aminotransferase [Enzymatic activity/volume] in Seru m or Plasma 77 U/L 12-78 [facility] ([facility]) Aspartate aminotransferase [Enzymatic activity/volume] in Serum or Plasma 32 U/L 15-37 [facility] ([facility] ) A/G Ratio 1.36 CALC 1.00-1.90 [facility]) Proteinase 3 Ab [Units/volume] in Serum 7.8 g/dL 6.4-8.2 [facility] Albumin [Mass/volume] in Serum or Plasma 4.5 g/dL 3.4-5.0 [facility] ([facility] Glomerular filtration rate/1.73 sq M pre dicted among non-blacks [Volume Rate/Area] in Serum or Plasma by Creatinine-based formula (MDRD) Laboratory test result [facility] ([facility] ) Glomerular filtration rate/1.73 sq M pre dicted among blacks [Volume Rate/Area] in Serum or Plasma by Creatinine-based formula (MDRD) Laboratory test result [facility] ([facility]) <content>CHRONIC KIDNEY DISEASE STAGING PER NKF</content>
<content></content>
<content>STAGE I & II GFR >= 60 NORMAL TO MILDLY DECREASED</content>
<content>STAGE III GFR 30-59 MODERATELY DECREASED</content>
<content>STAGE IV GFR 15-29 SEVERELY DECREASED</content>
<content>STAGE V GFR <15 VERY LITTLE GFR LEFT</content>
<content>ESRD GFR <15 ON PILL MAKER</content>
<content></content> ID Date Data Source [id number] 03/29/2020 09:36:00 AM EDT [facility] ([facility]) Name Value Range Interpretation Code Description Data Corinne rce(s) Supporting Document(s) Glucose mean value [Mass/volume] in Blood Estimated fr om glycated hemoglobin 134 mg/dL 60-110 [facility] ([facility] ) Hemoglobin A1c/Hemoglobin.total in Blood 6.3 % [facility] ([facility]) Lab Result Notes: Pre-Diabetes 5.7 - 6.4 % Diabetes = or > 6.5% ID Date Data Source [id number] 03/29/2020 09:36:00 AM EDT [facility]) Name Value Range Interpretation Code Description Data Corinne rce(s) Supporting Document(s) Leukocytes [#/volume] in Blood by Automated count 7.4 x10*3/UL 4.1-10 .9 [facility] ([facility]) Hemoglobin [Mass/volume] in Blood 15.5 g/dL 12.0-18.0 [facility] Erythrocytes [#/volume] in Blood by Automated count 5.05 x10*6/UL 4.2 0-6.30 [facility] ([facility]) MCV 86.1 fL 80.0-97.0 [facility] ([facility]) MCH 30.8 pg 26.0-32.0 [facility] ([facility]) Hematocrit [Volume Fraction] of Blood by Automated count 43.4 % 3 7.0-51.0 [facility] ([facility]) MCHC 35.7 g/dL 31.0-38.0 [facility] ([facility]) Erythrocyte distribution width [Ratio] by Automated count 12.4 % 11.6-13.7 [facility] ([facility]) Platelets [#/volume] in Blood by Automated count 280 x10*3/UL 140-440 [facility] ([facility]) Mid % 8.8 % 1.7-9.3 [facility] ([facility]) Lymph % 31.1 % 10.0-58.5 [facility] ([facility]) MPV 7.3 FL 7.8-11.0 [facility] ([facility]) Lymph # 2.3 x10*3/UL 0.6-4.1 [facility] ([facility]) Mid # 0.7 x10*3/UL 0.1-0.6 [facility] ([facility]) Neut % 60.1 % 37.0-92.0 [facility] ([facility]) Neut # 4.4 x10*3/UL 2.0-7.8 [facility] ([facility]) ID Date Data Source [id number] 09/25/2019 09:22:00 AM EDT [facility] ([facility]) Name Value Range Interpretation Code Description Data Corinne rce(s) Supporting Document(s) Glucose [Mass/volume] in Serum or Plasma 110 mg/dL 74-99 [facility] ([facility]) 100-125 mg/dL PRE-DIABETES/FASTING >126 mg/dL DIABETES/FASTING Urea nitrogen [Mass/volume] in Serum or Plasma 13 mg/dL 7-18 [facility] ([facility]) Creatinine 1.2 mg/dL 0.6-1.3 [facility] Sodium [Moles/volume] in Serum or Plasma 136 meq/L 136-145 [facility] ([facility]) Chloride [Moles/volume] in Serum or Plasma 100 meq/L 98-107 [facility] ([facility]) Potassium [Moles/volume] in Serum or Plasma 3.8 meq/L 3.5-5.1 [facility] ([facility]) Carbon dioxide, total [Moles/volume] in Serum or Plasma 27 meq/L 21 -32 [facility] ([facility]) Alkaline phosphatase isoenzyme [Units/volume] in Serum or Pl asma 53 mg/dL 46-116 [facility] ([facility]) Total Bilirubin 0.9 mg/dL 0.2-1.0 [facility] ([facility]) Calcium [Mass/volume] in Serum or Plasma 8.8 mg/dL 8.5-10.1 [facility] ([facility]) Alanine aminotransferase [Enzymatic activity/volume] in Seru m or Plasma 94 U/L 12-78 [facility] ([facility]) Albumin [Mass/volume] in Serum or Plasma 4.4 g/dL 3.4-5.0 [facility] ([facility]) Aspartate aminotransferase [Enzymatic activity/volume] in Serum or Plasma 19 U/L 15-37 [facility] ([facility] ) A/G Ratio 1.22 CALC 1.00-1.90 [facility] ([facility]) Proteinase 3 Ab [Units/volume] in Serum 8.0 g/dL 6.4-8.2 [facility] ([facility]) Glomerular filtration rate/1.73 sq M pre dicted among non-blacks [Volume Rate/Area] in Serum or Plasma by Creatinine-based formula (MDRD) Laboratory test result [facility] ([facility] ) Glomerular filtration rate/1.73 sq M pre dicted among blacks [Volume Rate/Area] in Serum or Plasma by Creatinine-based formula (MDRD) Laboratory test result [facility] ([facility]) <content>CHRONIC KIDNEY DISEASE STAGING PER NKF</content>
<content></content>
<content>STAGE I & II GFR >= 60 NORMAL TO MILDLY DECREASED</content>
<content>STAGE III GFR 30-59 MODERATELY DECREASED</content>
<content>STAGE IV GFR 15-29 SEVERELY DECREASED</content>
<content>STAGE V GFR <15 VERY LITTLE GFR LEFT</content>
<content>ESRD GFR <15 ON PILL MAKER</content>
<content></content> ID Date Data Source [id number] 09/25/2019 09:22:00 AM EDT [facility]) Name Value Range Interpretation Code Description Data Corinne rce(s) Supporting Document(s) Glucose mean value [Mass/volume] in Blood Estimated fr om glycated hemoglobin 125 mg/dL 60-110 [facility] Hemoglobin A1c/Hemoglobin.total in Blood 6.0 g/dL 4.8-5.6 [facility] Lab Result Notes: Pre-Diabetes 5.7 - 6.4 % Diabetes = or > 6.5% ID Date Data Source [id number] 09/25/2019 09:22:00 AM EDT [facility] Name Value Range Interpretation Code Description Data Corinne rce(s) Supporting Document(s) Leukocytes [#/volume] in Blood by Automated count 6.9 x10*3/UL 4.1-10 .9 [facility] ([facility]) Erythrocytes [#/volume] in Blood by Automated count 5.19 x10*6/UL 4.2 0-6.30 [facility]) Hemoglobin [Mass/volume] in Blood 15.7 g/dL 12.0-18.0 [facility] ([facility]) Hematocrit [Volume Fraction] of Blood by Automated count 45.1 % 3 7.0-51.0 [facility] MCV 86.8 fL 80.0-97.0 [facility] MCH 30.3 pg 26.0-32.0 [facility] MCHC 34.9 g/dL 31.0-38.0 [facility]) Erythrocyte distribution width [Ratio] by Automated count 12.6 % 11.6-13.7 [facility] ([facility]) Lymph % 44.0 % 10.0-58.5 [facility] Platelets [#/volume] in Blood by Automated count 321 x10*3/UL 140-440 [facility] ([facility]) MPV 7.1 FL 7.8-11.0 [facility] Lymph # 3.0 x10*3/UL 0.6-4.1 [facility] ([facility]) Mid % 8.3 % 1.7-9.3 [facility] Neut % 47.7 % 37.0-92.0 [facility] Neut # 3.3 x10*3/UL 2.0-7.8 [facility] ([facility]) Mid # 0.6 x10*3/UL 0.1-0.6 [facility] ([facility]) Procedure Social History Code Duration Value Status Description Data Source(s ) Smoking 06/10/2020 12:00:00 AM EST Patient has never smoked co mpleted Patient has never smoked [facility] ([facility], ) Vital Signs ID Date Data Source UNK Name Value Range Interpretation Code Description Data Source(s) Body mass index (BMI) [Ratio] 55.1 kg/m2 55.1 k g/m2 [facility] ([facility]) Body weight 357.00 [lb_av] 357.00 [lb_av] [facility] T ([facility]) Body height 67.50 [in_i] 67.50 [in_i] [facility] 5'7.50" Heart rate 83 /min 83 /min [facility] ([facility]) Diastolic blood pressure 90 mm[Hg] 90 mm[Hg] [facility] ([facility]) Systolic blood pressure 150 mm[Hg] 150 mm[Hg] M EDENT ([facility]) Body mass index (BMI) [Ratio] 55.9 kg/m2 55.9 k g/m2 [facility] ([facility]) Body weight 362.00 [lb_av] 362.00 [lb_av] [facility] T ([facility]) Body height 67.50 [in_i] 67.50 [in_i] [facility] ([facility]) 5'7.50" Heart rate 81 /min 81 /min [facility] ([facility]) Diastolic blood pressure 100 mm[Hg] 100 mm[Hg] [facility] ([facility]) Systolic blood pressure 160 mm[Hg] 160 mm[Hg] [facility] Body surface area Derived from formula 2.61 m2 2.61 m2 [facility] ([facility]) Body weight 165.110 kg 165.110 kg [facility] ([facility]) [place] body weight 148 [lb_av] 148 [lb_av] [facility] T ([facility]) Body mass index (BMI) [Ratio] 57.0 kg/m2 57.0 k g/m2 [facility] ([facility]) Body weight 364.00 [lb_av] 364.00 [lb_av] [facility] Body height 67 [in_i] 67 [in_i] [facility] ([facility]) 5'7" Oxygen saturation in Arterial blood by Pulse oximetry 98 % 98 % [facility] ([facility]) Heart rate 83 /min 83 /min [facility] ([facility]) Diastolic blood pressure 98 mm[Hg] 98 mm[Hg] [facility] ([facility] [facility]) Systolic blood pressure 138 mm[Hg] 138 mm[Hg] [facility] Body surface area Derived from formula 2.59 m2 2.59 m2 [facility] ([facility]) Body weight 162.389 kg 162.389 kg [facility] ([facility]) [place] body weight 148 [lb_av] 148 [lb_av] [facility] ([facility]) Body mass index (BMI) [Ratio] 56.1 kg/m2 56.1 k g/m2 [facility] ([facility]) Body weight 358.00 [lb_av] 358.00 [lb_av] [facility] ([facility]) Body height 67 [in_i] 67 [in_i] [facility] ([facility]) 5'7" Oxygen saturation in Arterial blood by Pulse oximetry 98 % 98 % [facility] ([facility]) Heart rate 76 /min 76 /min [facility] ([facility]) Diastolic blood pressure 96 mm[Hg] 96 mm[Hg] [facility] ([facility]) Systolic blood pressure 142 mm[Hg] 142 mm[Hg] M [facility] ([facility]) Body mass index (BMI) [Ratio] 55.1 kg/m2 55.1 k g/m2 [facility] ([facility]) Body weight 357.00 [lb_av] 357.00 [lb_av] [facility] ([facility]) Body height 67.50 [in_i] 67.50 [in_i] [facility] ([facility]) 5'7.50" Heart rate 74 /min 74 /min [facility] ([facility]) Diastolic blood pressure 72 mm[Hg] 72 mm[Hg] [facility] Systolic blood pressure 136 mm[Hg] 136 mm[Hg] [facility] Body weight 161.482 kg 161.482 kg [facility] ([facility]) Body mass index (BMI) [Ratio] 55.8 kg/m2 55.8 k g/m2 [facility] ([facility]) Heart rate 87 /min 87 /min [facility] ([facility]) Diastolic blood pressure 87 mm[Hg] 87 mm[Hg] [facility] ([facility]) Systolic blood pressure 131 mm[Hg] 131 mm[Hg] [facility] Body weight 356.00 [lb_av] 356.00 [lb_av] [facility] ([facility]) Temp 97.0 Body height 67 [in_i] 67 [in_i] [facility] 5'7" Body weight 159.384 kg 159.384 kg [facility] ([facility]) Body mass index (BMI) [Ratio] 55.0 kg/m2 55.0 k g/m2 [facility] ([facility]) Body weight 351.38 [lb_av] 351.38 [lb_av] [facility] ([facility]) Body height 67 [in_i] 67 [in_i] [facility] 5'7" Body temperature 96.9 [degF] 96.9 [degF] [facility] ([facility]) Oxygen saturation in Arterial blood by Pulse oximetry 97 % 97 % [facility] ([facility]) Heart rate 84 /min 84 /min [facility] ([facility]) Diastolic blood pressure 86 mm[Hg] 86 mm[Hg] [facility] ([facility]) Systolic blood pressure 148 mm[Hg] 148 mm[Hg] [facility] ([facility]) Body weight 162.616 kg 162.616 kg [facility] ([facility]) Body mass index (BMI) [Ratio] 56.1 kg/m2 56.1 k g/m2 [facility] ([facility]) Body weight 358.50 [lb_av] 358.50 [lb_av] [facility] ([facility]) Body height 67 [in_i] 67 [in_i] [facility] ([facility]) 5'7" Body temperature 96.7 [degF] 96.7 [degF] [facility] ([facility]) Oxygen saturation in Arterial blood by Pulse oximetry 96 % 96 % [facility] ([facility]) Heart rate 94 /min 94 /min [facility] ([facility]) Diastolic blood pressure 96 mm[Hg] 96 mm[Hg] [facility] ([facility]) Systolic blood pressure 144 mm[Hg] 144 mm[Hg] [facility] ([facility]) Body mass index (BMI) [Ratio] 54.8 kg/m2 54.8 k g/m2 [facility] Oxygen saturation in Arterial blood by Pulse oximetry 95 % 95 % [facility] ([facility]) Body weight 355.00 [lb_av] 355.00 [lb_av] [facility] ([facility]) Body height 67.50 [in_i] 67.50 [in_i] [facility] ([facility]) 5'7.50" Heart rate 88 /min 88 /min [facility] ([facility]) Diastolic blood pressure 76 mm[Hg] 76 mm[Hg] [facility] ([facility]) Systolic blood pressure 146 mm[Hg] 146 mm[Hg] [facility] ([facility]) Body mass index (BMI) [Ratio] 54.5 kg/m2 54.5 k g/m2 [facility] ([facility]) Body weight 353.00 [lb_av] 353.00 [lb_av] [facility] ([facility]) Body height 67.50 [in_i] 67.50 [in_i] [facility] ([facility]) 5'7.50" Diastolic blood pressure 62 mm[Hg] 62 mm[Hg] [facility] ([facility]) Systolic blood pressure 136 mm[Hg] 136 mm[Hg] [facility] ([facility]) Body mass index (BMI) [Ratio] 53.7 kg/m2 53.7 k g/m2 [facility] ([facility]) Body weight 348.00 [lb_av] 348.00 [lb_av] [facility] ([facility]) Body height 67.50 [in_i] 67.50 [in_i] [facility] ([facility]) 5'7.50" Diastolic blood pressure 100 mm[Hg] 100 mm[Hg] [facility] ([facility]) Systolic blood pressure 148 mm[Hg] 148 mm[Hg] [facility] ([facility])
[2020-08-14 13:48] LABS: CK-MB VALUE MASS 1.1 NG/ML (<3.6); CPK CREATINE PHOSPHOKINASE 102 U/L (39-308); MAGNESIUM LEVEL 2.2 MG/DL (1.8-2.4); MB/CK RELATIVE INDEX 1.08 (< OR =4); TROPONIN I < 0.02 NG/ML (< 0.10)
[2020-08-14] MEDS ORDERED: NEUR300C PO (14:27)
[2020-08-14 14:40] VITALS: BP 159/89
--- NOTE | 2020-08-14 14:59 | ECGEPIP ---
[facility] - ED Test Date: 2020-08-14 Pat Name: SARAH REEVES Department: Room: - Gender: Male Insurance Processor: : 1985 Requested By: DICK Hernández PA-C Order Number: [id number] Reading MD: Damian Fan Measurements Intervals [place] Rate: 85 P: 56 GA: 162 QRS: 36 QRSD: 98 T: 21 QT: 376 QTc: 447 Interpretive Statements Normal sinus rhythm NO PRIORS FOR COMPARISON Electronically Signed on 08-14-2020 14:59:28 EST by Damian Fan
== END 2020-08-14 14:44 | disposition home or self-care (01) ==
LOC: M ED 12:09
DX: R20.2 Paresthesia of skin (principal); I10 Essential (primary) hypertension

== ENCOUNTER 2021-04-04 16:56 | Emergency (ER) | payer BC ==
[~2021-04-04] VITALS: Ht 170.2 cm; Wt 163.3 kg
[~2021-04-04 16:56] MED LIST changes: +AMLO1TAB24; +NEUR300C PO
--- NOTE | 2021-04-04 22:12 | ECGEPIP ---
[facility] - ED Test Date: 2021-04-04 Pat Name: SARAH REEVES Department: Room: - Gender: Male Medicaid Specialist: LYNDSEY : 1985 Requested By: GEOVANNY Gaytan Order Number: [id number] Reading MD: Geovanny Foote Measurements Intervals [place] Rate: 80 P: 64 PA: 170 QRS: 49 QRSD: 92 T: 46 QT: 394 QTc: 454 Interpretive Statements Normal sinus rhythm Electronically Signed on 04-04-2021 22:12:13 EDT by Geovanny Foote
[2021-04-05 00:48] LABS: BASO # 0.1 10^3/uL (0.0-0.2); BASO % 0.6 % (0.0-1.0); EOS # 0.2 10^3/uL (0.0-0.5); EOS % 2.6 % (0.0-3.0); HEMOGLOBIN 15.4 g/dl (13.5-17.5); LYMPH # 3.2 10^3/uL (1.5-5.0); LYMPH % 36.2 % (24.0-44.0); MEAN CORPUSCULAR HEMOGLOBIN 30.9 pg (27.0-33.0); MEAN CORPUSCULAR VOLUME 88.2 fl (80.0-96.0); MONO # 0.9 10^3/uL (0.0-0.8); MONO % 10.8 % (2.0-8.0); NEUTROPHILS # 4.3 10^3/uL (1.5-8.5); NEUTROPHILS % 49.6 % (36.0-66.0); PLATELET COUNT, AUTOMATED 298 10^3/uL (150-450); RED BLOOD COUNT 4.99 10^6/uL (4.30-6.10); WHITE BLOOD COUNT 8.7 10^3/uL (4.0-10.0)
[2021-04-05 02:29] LABS: BLOOD UREA NITROGEN 12 MG/DL (7-18); CALCIUM LEVEL 9.6 MG/DL (8.5-10.1); CARBON DIOXIDE LEVEL 29 MEQ/L (21-32); CHLORIDE LEVEL 102 MEQ/L (98-107); CK-MB VALUE MASS 1.2 NG/ML (<3.6); CPK CREATINE PHOSPHOKINASE 121 U/L (39-308); GLOMERULAR FILTRATION RATE > 60.0 (>60); GLUCOSE, FASTING 96 MG/DL (70-100); MAGNESIUM LEVEL 2.1 MG/DL (1.8-2.4); MB/CK RELATIVE INDEX 0.99 (< OR =4); POTASSIUM SERUM 3.9 MEQ/L (3.5-5.1); SODIUM LEVEL 141 MEQ/L (136-145); TROPONIN I < 0.02 NG/ML (< 0.10)
--- NOTE | 2021-04-05 03:44 | REPVR ---
PROCEDURE INFORMATION: Exam: XR Chest Exam date and time: 04/05/2021 1:09 AM Age: 35 years old Clinical indication: Pain; Angina pectoris; Additional info: Left chest pain TECHNIQUE: Imaging protocol: XR of the chest. Views: 1 view. COMPARISON: CT ABD/PEL W/IV CONTRAST ONLY 02/03/2019 3:49 AM FINDINGS: Lungs: No focal infiltrates. Pleural spaces: Unremarkable. No pleural effusion. No pneumothorax. Heart/Mediastinum: The heart is within normal limits considering AP and lordotic projection. Bones/joints: Unremarkable. Soft tissues: There are moderately generous overlying soft tissues. IMPRESSION: Essentially negative lordotic chest. No acute process is identified. Electronically signed by: Jay Paul On 04/05/2021 03:44:02 AM
[2021-04-05 04:11] VITALS: BP 139/64
== END 2021-04-05 04:25 | disposition home or self-care (01) ==
LOC: M ED 16:56
DX: R07.89 Other chest pain (principal); I10 Essential (primary) hypertension; E78.5 Hyperlipidemia, unspecified; K21.9 Gastro-esophageal reflux disease without esophagitis; Z79.899 Other long term (current) drug therapy

== ENCOUNTER 2021-05-01 09:40 | Outpatient (CLI) | payer BC ==
[~2021-05-01] VITALS: Ht 170.2 cm; Wt 159.1 kg
[~2021-05-01 09:40] MED LIST changes: +ALBUTEROL 90 MCG/ACT 8GM HFA INHALER INH PRN; +ALBUTEROL SULFATE 2.5 MG/0.5 ML INH NEB SOLN INH PRN; +CASIRIVIMAB (REGN10933) 600 MG, IMDEVIMAB (REGN10987) 600 MG in NS 250 ML IV ONE; +EPINEPHrine INJ 1 MG/ML 1ML AMP IM PRN; +NS 1,000 ML IV SCH; +diphenhydrAMINE 50MG/ML VIAL (J1200) IV PRN; +methylPREDNISolone 125MG 2ML VIAL IV PRN
[2021-05-01] MEDS ORDERED: ACETAMINOPHEN TAB 650MG DOSE (2X325MG) PO ONE (09:55)
[2021-05-01] MEDS ORDERED: diphenhydrAMINE 25MG CAP PO ONE (09:55)
[2021-05-01 10:17] VITALS: BP 120/74
[2021-05-01 10:47] VITALS: BP 135/77
[2021-05-01 11:17] VITALS: BP 136/72
[2021-05-01 12:17] VITALS: BP 120/66
== END 2021-05-01 12:17 | disposition home or self-care (01) ==
LOC: M OPCLI4PR 09:40
PROVIDERS: ATTEND Internal Medicine
DX: U07.1 COVID-19 (principal)

== ENCOUNTER → 2022-07-11 | Outpatient (CLI) | payer BC ==
[~2022-07-11] MED LIST changes: -ALBUTEROL 90 MCG/ACT 8GM HFA INHALER INH PRN; -ALBUTEROL SULFATE 2.5 MG/0.5 ML INH NEB SOLN INH PRN; +AMLO1TAB25 PO; -AZAT50TA2 PO; +AZAT50TA37 PO; -CASIRIVIMAB (REGN10933) 600 MG, IMDEVIMAB (REGN10987) 600 MG in NS 250 ML IV ONE; -EPINEPHrine INJ 1 MG/ML 1ML AMP IM PRN; +HYZA100T6 PO; -NS 1,000 ML IV SCH; +OMEP40CA4 PO; -diphenhydrAMINE 50MG/ML VIAL (J1200) IV PRN; -methylPREDNISolone 125MG 2ML VIAL IV PRN
== END ==
LOC: M LABSMTC 11:39
PROVIDERS: ATTEND Anesthesiology
DX: Z01.812 Encounter for preprocedural laboratory examination (principal); Z20.822 Contact with and (suspected) exposure to COVID-19

== ENCOUNTER 2022-07-16 11:18 | Day surgery (SDC) | payer BC ==
[~2022-07-16] VITALS: Ht 170.2 cm; Wt 166.9 kg
[~2022-07-16 11:18] MED LIST changes: +NS 1,000 ML IV ONE
[2022-07-16] MEDS ORDERED: propofoL 200 MG/20 ML VIAL As Ordered ONE (13:05)
[2022-07-16] MEDS ORDERED: LIDOCAINE 2% 100MG/5ML SDV (FOR ANES.) As Ordered ONE (13:05)
[2022-07-16 13:35] VITALS: BP 126/65
== END 2022-07-16 13:44 | disposition home or self-care (01) ==
LOC: M OPP 11:18
PROVIDERS: ATTEND Internal Medicine Gastroenterology
DX: Z01.818 Encounter for other preprocedural examination (principal); Q40.2 Other specified congenital malformations of stomach; K29.70 Gastritis, unspecified, without bleeding; E66.01 Morbid (severe) obesity due to excess calories; Z79.1 Long term (current) use of non-steroidal anti-inflammatories (NSAID); Z79.620 Long term (current) use of immunosuppressive biologic; Z79.83 Long term (current) use of bisphosphonates; Z79.899 Other long term (current) drug therapy; Z87.19 Personal history of other diseases of the digestive system; G47.33 Obstructive sleep apnea (adult) (pediatric); Z99.89 Dependence on other enabling machines and devices; I10 Essential (primary) hypertension; Z87.891 Personal history of nicotine dependence

== ENCOUNTER → 2022-10-05 | Outpatient (CLI) | payer BC ==
[~2022-10-05] MED LIST changes: -HYZA100T6 PO; +LOSA-536 PO; -NS 1,000 ML IV ONE
[2022-10-05 14:25] LABS: BASO % 0.5 % (0.0-1.0); EOS # 0.3 10^3/uL (0.0-0.5); EOS % 3.2 % (0.0-3.0); HEMATOCRIT 38.3 % (42.0-52.0); HEMOGLOBIN 13.1 g/dl (13.5-17.5); LYMPH # 2.6 10^3/uL (1.5-5.0); LYMPH % 31.6 % (24.0-44.0); MEAN CORPUSCULAR HEMOGLOBIN 29.6 pg (27.0-33.0); MEAN CORPUSCULAR HGB CONC 34.2 g/dl (32.0-36.5); MEAN CORPUSCULAR VOLUME 86.5 fl (80.0-96.0); MONO % 11.9 % (2.0-8.0); NEUTROPHILS # 4.4 10^3/uL (1.5-8.5); NEUTROPHILS % 52.7 % (36.0-66.0); PLATELET COUNT, AUTOMATED 276 10^3/uL (150-450); RED BLOOD COUNT 4.43 10^6/uL (4.30-6.10); WHITE BLOOD COUNT 8.3 10^3/uL (4.0-10.0)
[2022-10-05 14:48] LABS: HEMATOCRIT 38.1 % (42.0-52.0)
[2022-10-05 14:52] LABS: TOTAL IRON BINDING CAPACITY 255 UG/DL (250-425)
[2022-10-05 14:54] LABS: FERRITIN 337.7 NG/ML (10.5-307.3); IRON (FE) 70 UG/DL (65-175); PERCENT SATURATION 27.5 % (19.7-50.0); TOTAL 25(OH) VITAMIN D 31.5 NG/ML (20.0-100.0)
[2022-10-05 15:48] LABS: HEMOGLOBIN A1c 5.6 % (4.0-6.0)
[2022-10-05 16:35] LABS: ALBUMIN 4.2 G/DL (3.2-5.2); ALKALINE PHOSPHATASE 83 U/L (46-116); ALT/SGPT 32 U/L (7.0-40); AST/SGOT 20 U/L (<34); BILIRUBIN,TOTAL 0.8 MG/DL (0.3-1.2); BLOOD UREA NITROGEN 12 MG/DL (9-23); CALCIUM LEVEL 9.3 MG/DL (8.5-10.1); CARBON DIOXIDE LEVEL 30 MMOL/L (20-31); CHLORIDE LEVEL 101 MMOL/L (98-107); CREATININE FOR GFR 0.87 MG/DL (0.70-1.30); GLOMERULAR FILTRATION RATE > 60.0 (>60); GLUCOSE, FASTING 77 MG/DL (60-100); MAGNESIUM LEVEL 1.8 MG/DL (1.8-2.4); PHOSPHORUS LEVEL 2.6 MG/DL (2.5-4.9); SODIUM LEVEL 140 MMOL/L (136-145); TOTAL PROTEIN 6.8 G/DL (5.7-8.2); VITAMIN B12 LEVEL 1056 PG/ML (211-911)
[2022-10-05 17:15] LABS: POTASSIUM SERUM 2.9 MMOL/L (3.5-5.1)
== END ==
LOC: M WUC 10:11
PROVIDERS: ATTEND Surgery
DX: Z98.84 Bariatric surgery status (principal); K91.2 Postsurgical malabsorption, not elsewhere classified; E55.9 Vitamin D deficiency, unspecified

== ENCOUNTER 2023-02-19 15:13 | Emergency (ER) | payer BC ==
[~2023-02-19] VITALS: Ht 170.2 cm; Wt 122.0 kg
[2023-02-19 16:24] LABS: BASO % 0.3 % (0.0-1.0); EOS # 0.2 10^3/uL (0.0-0.5); EOS % 1.8 % (0.0-3.0); HEMATOCRIT 37.9 % (42.0-52.0); HEMOGLOBIN 12.6 g/dl (13.5-17.5); LYMPH # 2.4 10^3/uL (1.5-5.0); LYMPH % 24.6 % (24.0-44.0); MEAN CORPUSCULAR HGB CONC 33.2 g/dl (32.0-36.5); MEAN CORPUSCULAR VOLUME 87.1 fl (80.0-96.0); MONO # 0.9 10^3/uL (0.0-0.8); MONO % 9.1 % (2.0-8.0); NEUTROPHILS # 6.1 10^3/uL (1.5-8.5); PLATELET COUNT, AUTOMATED 354 10^3/uL (150-450); RED BLOOD COUNT 4.35 10^6/uL (4.30-6.10); WHITE BLOOD COUNT 9.6 10^3/uL (4.0-10.0)
[2023-02-19 16:45] LABS: LIPASE 41 U/L (12-53)
[2023-02-19 16:46] LABS: CK-MB VALUE MASS < 1.0 NG/ML (<3.6)
[2023-02-19 16:48] LABS: ALBUMIN 3.8 G/DL (3.2-5.2); ALKALINE PHOSPHATASE 149 U/L (46-116); ALT/SGPT 17 U/L (7.0-40); AST/SGOT < 8 U/L (<34); BILIRUBIN,DIRECT 0.2 MG/DL (<0.4); BILIRUBIN,TOTAL 0.5 MG/DL (0.3-1.2); BLOOD UREA NITROGEN 10 MG/DL (9-23); CALCIUM LEVEL 8.9 MG/DL (8.5-10.1); CARBON DIOXIDE LEVEL 28 MMOL/L (20-31); CHLORIDE LEVEL 104 MMOL/L (98-107); CPK CREATINE PHOSPHOKINASE 60 U/L (46-171); CREATININE FOR GFR 0.75 MG/DL (0.70-1.30); GLOMERULAR FILTRATION RATE > 60.0 (>60); GLUCOSE, FASTING 85 MG/DL (60-100); MB/CK RELATIVE INDEX 1.66 (< OR =4); POTASSIUM SERUM 3.7 MMOL/L (3.5-5.1); SODIUM LEVEL 139 MMOL/L (136-145); TOTAL PROTEIN 6.8 G/DL (5.7-8.2)
[2023-02-19] MEDS ORDERED: LIDOCAINE 5% (LIDODERM) PATCH TD ONE (17:50)
[2023-02-19] MEDS ORDERED: ASPE4PAD TOP (19:05)
[2023-02-19 19:22] VITALS: BP 158/76; TEMP 97.6; O2SAT 97
== END 2023-02-19 19:35 | disposition home or self-care (01) ==
LOC: M ED 15:13
DX: R07.89 Other chest pain (principal); I10 Essential (primary) hypertension; G47.33 Obstructive sleep apnea (adult) (pediatric); K51.90 Ulcerative colitis, unspecified, without complications; Z98.84 Bariatric surgery status; Z79.899 Other long term (current) drug therapy

== ENCOUNTER → 2023-03-08 | Outpatient (CLI) | payer BC ==
[~2023-03-08] MED LIST changes: +ASPE4PAD TOP
[2023-03-08 14:06] LABS: HEMATOCRIT 37.1 % (42.0-52.0)
[2023-03-08 14:11] LABS: BASO % 0.4 % (0.0-1.0); EOS # 0.2 10^3/uL (0.0-0.5); EOS % 2.8 % (0.0-3.0); HEMOGLOBIN 12.4 g/dl (13.5-17.5); LYMPH # 1.8 10^3/uL (1.5-5.0); LYMPH % 22.1 % (24.0-44.0); MEAN CORPUSCULAR HEMOGLOBIN 29.5 pg (27.0-33.0); MEAN CORPUSCULAR HGB CONC 33.5 g/dl (32.0-36.5); MEAN CORPUSCULAR VOLUME 88.1 fl (80.0-96.0); MONO # 1.2 10^3/uL (0.0-0.8); MONO % 14.7 % (2.0-8.0); NEUTROPHILS # 4.7 10^3/uL (1.5-8.5); NEUTROPHILS % 59.1 % (36.0-66.0); PLATELET COUNT, AUTOMATED 363 10^3/uL (150-450)
[2023-03-08 14:37] LABS: IRON (FE) 42 UG/DL (65-175)
[2023-03-08 14:38] LABS: PERCENT SATURATION 16.3 % (19.7-50.0); TOTAL IRON BINDING CAPACITY 257 UG/DL (250-425)
[2023-03-08 14:41] LABS: FERRITIN 353.1 NG/ML (10.5-307.3)
[2023-03-08 14:42] LABS: HEMOGLOBIN A1c 5.7 % (4.0-6.0); TOTAL 25(OH) VITAMIN D 39.8 NG/ML (20.0-100.0)
[2023-03-08 14:44] LABS: VITAMIN B12 LEVEL 750 PG/ML (211-911)
[2023-03-08 14:49] LABS: ALBUMIN 3.8 G/DL (3.2-5.2); ALKALINE PHOSPHATASE 171 U/L (46-116); ALT/SGPT 29 U/L (7.0-40); AST/SGOT 10 U/L (<34); BILIRUBIN,TOTAL 0.5 MG/DL (0.3-1.2); BLOOD UREA NITROGEN 9 MG/DL (9-23); CALCIUM LEVEL 9.2 MG/DL (8.5-10.1); CARBON DIOXIDE LEVEL 31 MMOL/L (20-31); CHLORIDE LEVEL 102 MMOL/L (98-107); CREATININE FOR GFR 0.73 MG/DL (0.70-1.30); GLOMERULAR FILTRATION RATE > 60.0 (>60); GLUCOSE, FASTING 64 MG/DL (60-100); PHOSPHORUS LEVEL 3.5 MG/DL (2.5-4.9); POTASSIUM SERUM 3.8 MMOL/L (3.5-5.1); SODIUM LEVEL 138 MMOL/L (136-145); TOTAL PROTEIN 6.8 G/DL (5.7-8.2)
== END ==
LOC: M WUC 10:46
PROVIDERS: ATTEND Physician Assistant Surgical
DX: K91.2 Postsurgical malabsorption, not elsewhere classified (principal); Z98.84 Bariatric surgery status; E55.9 Vitamin D deficiency, unspecified; Z86.39 Personal history of other endocrine, nutritional and metabolic disease

== ENCOUNTER → 2023-04-21 | Outpatient (REF) | payer BC | LOC: M LAB REF 12:02 | PROVIDERS: ATTEND Physician Assistant Surgical | DX: K91.89 Other postprocedural complications and disorders of digestive system (principal); R19.7 Diarrhea, unspecified; Z98.84 Bariatric surgery status ==

== ENCOUNTER → 2023-05-20 | Outpatient (REF) | payer BC ==
[2023-05-20 13:21] LABS: IRON (FE) 56 UG/DL (65-175); PERCENT SATURATION 18.7 % (19.7-50.0); TOTAL IRON BINDING CAPACITY 300 UG/DL (250-425)
[2023-05-20 13:23] LABS: FOLATE > 24.0 NG/ML (>5.4); TOTAL 25(OH) VITAMIN D 26.8 NG/ML (20.0-100.0)
[2023-05-20 13:24] LABS: VITAMIN B12 LEVEL 1086 PG/ML (211-911)
== END ==
LOC: M LAB REF 11:58
PROVIDERS: ATTEND Internal Medicine
DX: I10 Essential (primary) hypertension (principal); Z79.84 Long term (current) use of oral hypoglycemic drugs

== ENCOUNTER → 2023-09-13 | Outpatient (CLI) | payer BC ==
[2023-09-13 12:04] LABS: BASO # 0.1 10^3/uL (0.0-0.2); BASO % 0.6 % (0.0-1.0); EOS # 0.2 10^3/uL (0.0-0.5); EOS % 2.4 % (0.0-3.0); HEMATOCRIT 39.3 % (42.0-52.0); HEMOGLOBIN 13.2 g/dl (13.5-17.5); LYMPH # 2.3 10^3/uL (1.5-5.0); LYMPH % 28.5 % (24.0-44.0); MEAN CORPUSCULAR HEMOGLOBIN 29.5 pg (27.0-33.0); MEAN CORPUSCULAR HGB CONC 33.6 g/dl (32.0-36.5); MEAN CORPUSCULAR VOLUME 87.9 fl (80.0-96.0); MONO # 0.8 10^3/uL (0.0-0.8); MONO % 9.7 % (2.0-8.0); NEUTROPHILS # 4.7 10^3/uL (1.5-8.5); NEUTROPHILS % 58.7 % (36.0-66.0); PLATELET COUNT, AUTOMATED 376 10^3/uL (150-450); RED BLOOD COUNT 4.47 10^6/uL (4.30-6.10); WHITE BLOOD COUNT 8.1 10^3/uL (4.0-10.0)
[2023-09-13 12:13] LABS: ERYTHROCYTE SEDIMENTATION RATE 19 mm/hr (0-15)
[2023-09-13 12:22] LABS: IRON (FE) 56 UG/DL (65-175)
[2023-09-13 12:23] LABS: ALBUMIN 3.8 G/DL (3.2-5.2); ALKALINE PHOSPHATASE 140 U/L (46-116); ALT/SGPT 31 U/L (7.0-40); AST/SGOT 19 U/L (<34); BILIRUBIN,DIRECT 0.2 MG/DL (<0.4); BILIRUBIN,TOTAL 0.5 MG/DL (0.3-1.2); BLOOD UREA NITROGEN 16 MG/DL (9-23); CREATININE FOR GFR 0.76 MG/DL (0.70-1.30); GLOMERULAR FILTRATION RATE > 60.0 (>60); PERCENT SATURATION 20.6 % (19.7-50.0); TOTAL IRON BINDING CAPACITY 272 UG/DL (250-425); TOTAL PROTEIN 6.8 G/DL (5.7-8.2)
[2023-09-13 12:25] LABS: FERRITIN 215.9 NG/ML (10.5-307.3)
== END ==
LOC: M WUC 10:09
PROVIDERS: ATTEND Internal Medicine Gastroenterology
DX: K51.90 Ulcerative colitis, unspecified, without complications (principal)

== ENCOUNTER → 2023-10-17 | Outpatient (CLI) | payer BC ==
[~2023-10-17] MED LIST changes: +LOSA50TA28 PO; +OMEP1CAP73 PO
[2023-10-17 14:04] LABS: BASO % 0.5 % (0.0-1.0); EOS # 0.2 10^3/uL (0.0-0.5); EOS % 2.6 % (0.0-3.0); HEMATOCRIT 40.1 % (42.0-52.0); HEMOGLOBIN 13.3 g/dl (13.5-17.5); LYMPH % 26.9 % (24.0-44.0); MEAN CORPUSCULAR HEMOGLOBIN 29.2 pg (27.0-33.0); MEAN CORPUSCULAR HGB CONC 33.2 g/dl (32.0-36.5); MEAN CORPUSCULAR VOLUME 88.1 fl (80.0-96.0); MONO # 0.7 10^3/uL (0.0-0.8); MONO % 9.4 % (2.0-8.0); NEUTROPHILS # 4.6 10^3/uL (1.5-8.5); NEUTROPHILS % 60.3 % (36.0-66.0); PLATELET COUNT, AUTOMATED 354 10^3/uL (150-450); RED BLOOD COUNT 4.55 10^6/uL (4.30-6.10); WHITE BLOOD COUNT 7.6 10^3/uL (4.0-10.0)
[2023-10-17 14:05] LABS: ALBUMIN 3.9 G/DL (3.2-5.2); ALKALINE PHOSPHATASE 170 U/L (46-116); ALT/SGPT 20 U/L (7.0-40); AST/SGOT 13 U/L (<34); BILIRUBIN,DIRECT 0.2 MG/DL (<0.4); BILIRUBIN,TOTAL 0.5 MG/DL (0.3-1.2); BLOOD UREA NITROGEN 12 MG/DL (9-23); CALCIUM LEVEL 9.4 MG/DL (8.5-10.1); CARBON DIOXIDE LEVEL 32 MMOL/L (20-31); CHLORIDE LEVEL 102 MMOL/L (98-107); CREATININE FOR GFR 0.78 MG/DL (0.70-1.30); FERRITIN 201.5 NG/ML (10.5-307.3); GLOMERULAR FILTRATION RATE > 60.0 (>60); GLUCOSE, FASTING 86 MG/DL (60-100); IRON (FE) 48 UG/DL (65-175); PERCENT SATURATION 17.3 % (19.7-50.0); POTASSIUM SERUM 4.2 MMOL/L (3.5-5.1); SODIUM LEVEL 139 MMOL/L (136-145); TOTAL IRON BINDING CAPACITY 278 UG/DL (250-425); TOTAL PROTEIN 6.8 G/DL (5.7-8.2)
[2023-10-17 14:06] LABS: VITAMIN B12 LEVEL 807 PG/ML (211-911)
[2023-10-17 14:08] LABS: FOLATE 20.6 NG/ML (>5.4)
[2023-10-17 14:14] LABS: ERYTHROCYTE SEDIMENTATION RATE 20 mm/hr (0-15)
== END ==
LOC: M WUC 09:16
PROVIDERS: ATTEND Internal Medicine Gastroenterology
DX: K51.90 Ulcerative colitis, unspecified, without complications (principal)

== ENCOUNTER 2023-10-22 11:06 | Day surgery (SDC) | payer BC ==
[~2023-10-22] VITALS: Ht 170.2 cm; Wt 120.3 kg
[2023-10-22] MEDS: NS 1,000 ML IV ONE (11:35)
[2023-10-22] MEDS ORDERED: MIDAZOLAM INJ 2MG/2ML VIAL As Ordered ONE (12:29)
[2023-10-22] MEDS ORDERED: propofoL 200 MG/20 ML VIAL As Ordered ONE (12:30)
[2023-10-22] MEDS ORDERED: LIDOCAINE 2% 100MG/5ML SDV (FOR ANES.) As Ordered ONE (12:30)
[2023-10-22 13:37] VITALS: BP 127/77; TEMP 97.2; O2SAT 99
== END 2023-10-22 13:41 | disposition home or self-care (01) ==
LOC: M OPP 11:06
PROVIDERS: ATTEND Internal Medicine Gastroenterology
DX: K51.50 Left sided colitis without complications (principal); K64.8 Other hemorrhoids; K64.4 Residual hemorrhoidal skin tags; K21.9 Gastro-esophageal reflux disease without esophagitis; Z90.49 Acquired absence of other specified parts of digestive tract; I10 Essential (primary) hypertension; G47.30 Sleep apnea, unspecified; Z79.899 Other long term (current) drug therapy
CPT/HCPCS: 45380; 88305; J2250

== ENCOUNTER → 2023-11-01 | Outpatient (REF) | payer BC ==
[2023-11-01 14:06] LABS: FERRITIN 217.1 NG/ML (10.5-307.3)
[2023-11-01 14:08] LABS: PHOSPHORUS LEVEL 4.2 MG/DL (2.5-4.9); TOTAL IRON BINDING CAPACITY 259 UG/DL (250-425)
[2023-11-01 14:14] LABS: IRON (FE) 67 UG/DL (65-175); PERCENT SATURATION 25.9 % (19.7-50.0)
[2023-11-01 14:25] LABS: VITAMIN B12 LEVEL 970 PG/ML (211-911)
[2023-11-01 14:56] LABS: FOLATE > 24.0 NG/ML (>5.4)
== END ==
LOC: M LAB REF 12:18
PROVIDERS: ATTEND Internal Medicine
DX: Z98.84 Bariatric surgery status (principal)

== ENCOUNTER → 2024-05-12 | Outpatient (REF) | payer BC ==
[2024-05-12 13:54] LABS: IRON (FE) 58 UG/DL (65-175); PERCENT SATURATION 21.4 % (19.7-50.0); PHOSPHORUS LEVEL 2.7 MG/DL (2.5-4.9); TOTAL IRON BINDING CAPACITY 271 UG/DL (250-425)
[2024-05-12 13:55] LABS: FOLATE > 24.0 NG/ML (>5.4)
[2024-05-12 13:56] LABS: TOTAL 25(OH) VITAMIN D 35.4 NG/ML (20.0-100.0); VITAMIN B12 LEVEL 1531 PG/ML (211-911)
== END ==
LOC: M LAB REF 12:30
PROVIDERS: ATTEND Internal Medicine
DX: Z98.84 Bariatric surgery status (principal)

== ENCOUNTER 2025-04-01 10:09 | Day surgery (SDC) | payer BC ==
[~2025-04-01] VITALS: Ht 170.2 cm; Wt 126.7 kg
[2025-04-01] MEDS ORDERED: LIDOCAINE 2% 100 MG/5 ML SDV (FOR ANES.) As Ordered ONE (11:14)
[2025-04-01 11:43] VITALS: TEMP 98.1
[2025-04-01 12:01] VITALS: BP 136/78; O2SAT 96
== END 2025-04-01 12:06 | disposition home or self-care (01) ==
LOC: M OPP 10:09
PROVIDERS: ATTEND Surgery
DX: K52.3 Indeterminate colitis (principal); K57.30 Diverticulosis of large intestine without perforation or abscess without bleeding; G47.30 Sleep apnea, unspecified; Z79.899 Other long term (current) drug therapy; Z98.84 Bariatric surgery status

== ENCOUNTER → 2025-05-12 | Outpatient (CLI) | payer BC | LOC: M WUC 10:15 | PROVIDERS: ATTEND Internal Medicine Gastroenterology | DX: K51.90 Ulcerative colitis, unspecified, without complications (principal) ==

== ENCOUNTER → 2025-05-24 | Outpatient (REF) | payer BC ==
[2025-05-24 13:09] LABS: IRON (FE) 38.0 UG/DL (65-175); PERCENT SATURATION 14.4 % (19.7-50.0); PHOSPHORUS LEVEL 3.8 MG/DL (2.5-4.9)
[2025-05-24 13:11] LABS: TOTAL 25(OH) VITAMIN D 25.4 NG/ML (20.0-100.0); VITAMIN B12 LEVEL 500.0 PG/ML (211-911)
[2025-05-27 17:13] LABS: VITAMIN A, RETINOL LEVEL 42 mcg/dL (38-98)
== END ==
LOC: M LAB REF 12:01
PROVIDERS: ATTEND Internal Medicine
DX: Z98.84 Bariatric surgery status (principal)